=== PATIENT | male | born 1975 | race Caucasian/White ===

== ENCOUNTER → 2019-10-27 16:02 | Outpatient (BNVA) | payer SELFPAY | PROVIDERS: Visit Provider Nurse Practitioner Family | DX: M24.469 Recurrent dislocation, unspecified knee (principal); M25.562 Pain in left knee; R23.8 Other skin changes; R22.42 Localized swelling, mass and lump, left lower limb | CPT/HCPCS: 73562; 85025 ==

== ENCOUNTER 2019-11-12 15:19 | Outpatient (CLI) | payer SELFPAY ==
--- NOTE | 2019-11-12 15:00 | US_ITS ---
WS: [id number] US soft tissue/extremity 60671 REASON FOR EXAM: mass of left upper leg FINDINGS: A prominent mass is seen involving the soft tissue in the upper left side. There is flow co ncerning the mass but the flow is not excessive. Size of the mass measures 8.19 x 12.5 x 6 cm. The ma ss has the texture of muscle. There is no evidence of thrombophlebitis or obstruction of the arterial system. US/US soft tissue/extremity 53999 IMPRESSION: Prominent left thigh soft tissue mass appears to be density suggesting muscle w ith possible hemorrhage.
== END 2019-11-12 15:20 | disposition home or self-care (01) ==
LOC: RAD 15:22
PROVIDERS: PCP Nurse Practitioner Family; Visit Provider Nurse Practitioner Family
DX: R22.42 Localized swelling, mass and lump, left lower limb (principal)
CPT/HCPCS: 76882

== ENCOUNTER → 2020-04-14 11:34 | Outpatient (BNVA) | payer SELFPAY | PROVIDERS: PCP Nurse Practitioner Family; Visit Provider Nurse Practitioner Family | DX: L03.115 Cellulitis of right lower limb (principal); R22.42 Localized swelling, mass and lump, left lower limb; T63.301A Toxic effect of unspecified spider venom, accidental (unintentional), initial encounter; Z86.14 Personal history of Methicillin resistant Staphylococcus aureus infection | CPT/HCPCS: 73552 ==

== ENCOUNTER 2020-04-15 14:33 | Emergency (ER) | payer SELFPAY ==
[2020-04-15 14:35] VITALS: BP 142/81; PULSE 95; RESP 18; TEMP 36.4; O2SAT 100; BMI 27.8
--- NOTE | 2020-04-15 14:43 | W.ED.GENADLT ---
Documented by User: KAM Archer 04/18/20 13:40 HPI - General Adult General: Chief complaint: General Medical Stated complaint: Right Leg/Vein Complications/Sent from [place] Time Seen by Provider: 04/15/20 14:43 History of Present Illness: HPI narrative: Patient is a 44-year-old male comes to the ED with cellulitis on right thigh. Patient was seen at [facility] for same complaint yesterday apr 14 and put on antibiotic and a steroid. Patient just started taking antibiotic and steroid for 24 hours. He went back into [facility] and they looked at cellulitis and sent him here to the ED to be evaluated. Patient says about 2 days ago he felt something poke his right thigh early in the morning. Ever since then he has had itching down in that area and has become tender, swollen and red. Associated symptoms: Deny chest pain, dyspnea, headache(s), nausea, rash, palpitations or vomiting Review of Systems Const: Denies: fever(s), chills or fatigue Eyes: Denies: change in vision or eye discomfort ENMT: Denies: throat pain, odynophagia, nasal discharge or nasal congestion Card: Denies: chest pain, palpitations, edema, swelling of feet/ankles, dyspnea on exertion or orthopnea Resp: Denies: dyspnea, productive cough or non-productive cough GI: Denies: abdominal pain, nausea, vomiting, diarrhea, constipation or hematochezia : Denies: flank pain, difficulty urinating, dysuria or hematuria Musc: Denies: neck pain, back pain or extremity swelling Skin/Breast: Reports: new lesions (Cellulitis on right thigh. 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 travel: No Physical Exam Const: COMMON NORMALS: no acute distress, patient oriented x3 and alert GENERAL APPEARANCE: cooperative and comfortable HENMT: COMMON NORMALS: normocephalic HEAD & SCALP: normocephalic MOUTH: Normal oral and palatal mucosa present THROAT: posterior oropharynx normal and uvula midline Eye: COMMON NORMALS: Equal, round and reactive pupils present PUPIL: Yes Equal, round and reactive pupils present Neck/C-Spine: COMMON NORMALS: supple GENERAL: Yes normal visual inspection Resp: COMMON NORMALS: normal respiratory effort, No retractions, No use of accessory muscles and clear to auscultation bilaterally AUSCULTATION: clear to auscultation bilaterally Cardio: COMMON NORMALS: regular rate, regular rhythm, S1 normal heart sound present, S2 normal heart sound present, No gallops present (Cardio), No clicks present (Cardio), No murmurs present (Cardio) and Peripheral pulses 2+ throughout RATE: regular rate RHYTHM: regular rhythm HEART SOUNDS: S1 normal heart sound present and S2 normal heart sound present PERIPHERAL PULSES: Peripheral pulses 2+ throughout GI: COMMON NORMALS: Normal to inspection, nondistended, normoactive bowel sounds present, Soft to palpation, non-tender and no masses PALPATION: Yes Soft to palpation : COMMON NORMALS: Yes no CVA tenderness BLADDER/KIDNEY EXAM: Yes no CVA tenderness Back/Pelvis: COMMON NORMALS: no CVA tenderness Extremity: COMMON NORMALS: no pedal edema NARRATIVE EXTREMITY EXAM: Right leg?medial aspect of thigh. Circular o ecchymosis approximately 1 cm. Surrounding erythema and warmth. No open wound or ulcer. No visible drainage. Skin is firm and tender upon palpation. Nonfluctuant and indurated. Exam findings suggestive of cellulitis. GENERAL: Yes normal exam except as noted Neuro: COMMON NORMALS: patient oriented x3 and moves all extremities SENSORIUM/ORIENTATION: Yes alert Skin: NARRATIVE SKIN EXAM: Right leg?medial aspect of thigh. Circular o ecchymosis approximately 1 cm. Surrounding erythema and warmth. No open wound or ulcer. No visible drainage. Skin is firm and tender upon palpation. Nonfluctuant and indurated. Exam findings suggestive of cellulitis. GENERAL SKIN EXAM: dry skin Course Vital Signs: Vital signs: Vital Signs Temperature 97.5 F L 11/19/20 14:35 Pulse Rate 86 04/15/20 17:55 Respiratory Rate 14 04/15/20 17:55 Blood Pressure 142/85 04/15/20 17:55 Pulse Oximetry 100 04/15/20 17:55 MDM - General Adult MDM Narrative: Medical decision making narrative: Patient is a 44-year-old male comes to the ED with right thigh lesion. Physical exam shows tender erythematous and warm nodule of the medial aspect of the right thigh. Ultrasound venous duplex shows mobile GSV thrombosis near femoral vein. White blood cell count 19.1. I talked with Dr. Hilario about patient case and she would need an examined patient. Patient was given a dose of Lovenox while here in the ED. Dr. Hilario tried to convince patient to be brought into the hospital but he refused. Patient was discharged on Eliquis to treat DVT/PE. He was told to continue taking his clindamycin and prednisone. Return to ED precautions given. Patient understood agree with plan. Lab Data: Labs: Lab Results 04/15/20 04/15/20 Range/Units 15:20 15:20 WBC 19.1 H (4.0-10.0) 10^3/ uL RBC 4.59 (4.1-5.3) 10^6/u L Hgb 13.7 (11.7-16.6) g/dL Hct 41.5 L (42.0-52.0) % MCV 90.4 (80-94) fL MCH 29.8 (28.0-34.0) pg MCHC 33.0 (30.0-36.0) g/dL RDW 12.8 (12.1-15.1) % Plt Count 278 (130-400) 10^3/c mm MPV 10.1 (7.4-10.4) fL Neut % (Auto) 85.9 % Lymph % (Auto) 6.3 % [place] % (Auto) 7.1 % Eos % (Auto) 0.0 % Baso % (Auto) 0.1 % Neut # (Auto) 16.38 H (1.8-7.7) 10^3/u L Lymph # (Auto) 1.2 (0.8-4.8) 10^3/u L [place] # (Auto) 1.4 H (0.2-0.9) 10^3/u L Eos # (Auto) 0.0 (0.0-0.8) 10^3/u L Baso # (Auto) 0.0 (0.0-0.1) 10^3/u L Nucleated RBC % (a uto) 0 % Nucleated RBCs # 0.0 /100WBC Sodium 139 (136-145) mmol/L Potassium 4.3 (3.5-5.1) mmol/L Chloride 101 (98-107) mmol/L Carbon Dioxide 25 (22-29) mmol/L Anion Gap 17.3 (5-19) BUN 17 (6-20) mg/dL Creatinine 0.9 (0.7-1.2) mg/dL GFR Calculation 92.5 (90-130) mL/min Glucose 187 H (65-115) mg/dL Calculated Osmolal ity 294 (285-295) mOsm/k g Calcium 10.0 (8.5-10.5) mg/dL Total Bilirubin 0.3 (0.15-1.2) mg/dL AST 17 (0-40) U/L ALT 10 (0-41) U/L Alkaline Phosphata se 86 (40-130) IU/L Total Protein 7.7 (6.6-8.7) g/dL Albumin 4.7 (3.5-5.2) g/dL Globulin 3.0 (1.3-4.6) g/dL Imaging Data^: US Vascular: Attestation: I personally reviewed and interpreted this imaging study as follows: Radiologist's impression: billing and quality technician prelim report?Thrombosis near femoral Vein. [address] [address] Ultrasound Report Signed Patient: Sandro Metz MUnit #: [id number] : 1975Acct#:[id number] Age/Sex: 44 / MADM Date: 04/15/20 Loc: ERRoom/Bed: Attending Dr: Ordering Provider/Ordering MD: Rafat Crespo Date of Service: 04/15/20 Procedure(s): [place] [address] Accession Number(s): [id number] Report Number: [id number] Sandro Metz Age: 44 Gender: M : 1975 Exam Date: 04/15/2020 15:19 Ordering Phys: Rafat Crespo Technologist: Vickie Paz [place] [facility] [place]: RED HARD INNER RT THIGH HISTORY: Pain and hardness rt inner thigh PROCEDURES: Venous duplex imaging was performed in only the right lower extremity. The following venous structures were evaluated: common femoral vein, profunda vein, proximal portion of the greater saphenous vein, superficial femoral vein, and the popliteal vein. In addition, the posterior tibial and peroneal trunk were evaluated. Serial compression, augmentation maneuvers, and spectral Doppler flow evaluation were performed. FINDINGS: No DVT seem in any vessel examined. RT GSV is noncompressible from just at knee to prox GSV. Extensive and mobile thrombus in the GSV with thicken maher. There may have been some hemorrhage into the wall of the GSV as there is mixed echogenicity and thickening. CONCLUSIONS No DVT right lower extremity. Extensive mobile thrombus GSV. Dr. Chula Cardoza DO (Electronically Signed) Final Date: 15 April 2020 15:45 Discharge Plan Discharge Patient Disposition: Home Clinical Impression: Cellulitis of right thigh, Thrombosis of right saphenous vein, Mass of left thigh Condition: Stable Prescriptions: New Eliquis DVT-PE Treat 30D Start 5 mg (74 tabs) tablets,dose pack See Rx Instructions .ROUTE .COMPLEX Qty: 74 RF: 0 No Action clindamycin HCl 300 mg capsule 300 mg PO TID 10 Days Qty: 30 RF: 0 prednisone 20 mg tablet See Rx Instructions PO BID 6 Days Qty: 14 RF: 0 Discharge Orders: Discharge Order (Routine); Ordered 04/15/20 Ordered By: Veronika Hilario Referrals: Mayela Barba FNP-C [Primary Care Provider] - Discharge Diet: Advance as tolerated Discharge Activity: Resume usual activity Patient Instructions: Cellulitis (ED), Deep Venous Thrombosis (ED) Activity Restrictions/Additional Instructions: Take the antibiotics exactly as prescribed. Start the Eliquis pack in the morning. This is a blood thinner to prevent worsening of the clot in your right leg. Watch the mass in your left leg closely to make sure it is not getting larger or more painful as the blood thinner could cause this to happen. Follow-up closely with the [facility] and make sure to keep the follow-up appointment with surgery for the left thigh mass. Return to the emergency department if worse in any way including fever, chest pain, shortness of breath. Coding Level of Care Code ED Hand Glass Cutter for Chg Fwd Exam Comprehensive Documented by User: PAOLA Iniguez 04/15/20 18:29 HPI - General Adult General: Chief complaint: General Medical Stated complaint: Right Leg/Vein Complications/Sent from [place] Time Seen by Provider: 04/15/20 14:43 [facility] ED PFSH: Medical History History of MRSA infection Mass of leg Surgical History History of back surgery Family History Other Unknown family medical history Social History Smoking and tobacco status: current every day smoker Lives independently: Yes Household members: none Marital status: Single Current occupational status: employed 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 travel: No Course Vital Signs: Vital signs: Vital Signs Temperature 97.5 F L 04/15/20 14:35 Pulse Rate 86 04/15/20 17:55 Respiratory Rate 14 04/15/20 17:55 Blood Pressure 142/85 04/15/20 17:55 Pulse Oximetry 100 04/15/20 17:55 MDM - General Adult Lab Data: Labs: Lab Results 04/15/20 04/15/20 Range/Units 15:20 15:20 WBC 19.1 H (4.0-10.0) 10^3/ uL RBC 4.59 (4.1-5.3) 10^6/u L Hgb 13.7 (11.7-16.6) g/dL Hct 41.5 L (42.0-52.0) % MCV 90.4 (80-94) fL MCH 29.8 (28.0-34.0) pg MCHC 33.0 (30.0-36.0) g/dL RDW 12.8 (12.1-15.1) % Plt Count 278 (130-400) 10^3/c mm MPV 10.1 (7.4-10.4) fL Neut % (Auto) 85.9 % Lymph % (Auto) 6.3 % [place] % (Auto) 7.1 % Eos % (Auto) 0.0 % Baso % (Auto) 0.1 % Neut # (Auto) 16.38 H (1.8-7.7) 10^3/u L Lymph # (Auto) 1.2 (0.8-4.8) 10^3/u L [place] # (Auto) 1.4 H (0.2-0.9) 10^3/u L Eos # (Auto) 0.0 (0.0-0.8) 10^3/u L Baso # (Auto) 0.0 (0.0-0.1) 10^3/u L Nucleated RBC % (a uto) 0 % Nucleated RBCs # 0.0 /100WBC Sodium 139 (136-145) mmol/L Potassium 4.3 (3.5-5.1) mmol/L Chloride 101 (98-107) mmol/L Carbon Dioxide 25 (22-29) mmol/L Anion Gap 17.3 (5-19) BUN 17 (6-20) mg/dL Creatinine 0.9 (0.7-1.2) mg/dL GFR Calculation 92.5 (90-130) mL/min Glucose 187 H (65-115) mg/dL Calculated Osmolal ity 294 (285-295) mOsm/k g Calcium 10.0 (8.5-10.5) mg/dL Total Bilirubin 0.3 (0.15-1.2) mg/dL AST 17 (0-40) U/L ALT 10 (0-41) U/L Alkaline Phosphata se 86 (40-130) IU/L Total Protein 7.7 (6.6-8.7) g/dL Albumin 4.7 (3.5-5.2) g/dL Globulin 3.0 (1.3-4.6) g/dL Discharge Plan Discharge Patient Disposition: Home Clinical Impression: Cellulitis of right thigh, Thrombosis of right saphenous vein, Mass of left thigh Condition: Stable Prescriptions: New Eliquis DVT-PE Treat 30D Start 5 mg (74 tabs) tablets,dose pack See Rx Instructions .ROUTE .COMPLEX Qty: 74 RF: 0 No Action clindamycin HCl 300 mg capsule 300 mg PO TID 10 Days Qty: 30 RF: 0 prednisone 20 mg tablet See Rx Instructions PO BID 6 Days Qty: 14 RF: 0 Discharge Orders: Discharge Order (Routine); Ordered 04/15/20 Ordered By: Veronika Hilario Referrals: Mayela Barba FNP-C [Primary Care Provider] - Discharge Diet: Advance as tolerated Discharge Activity: Resume usual activity Patient Instructions: Cellulitis (ED), Deep Venous Thrombosis (ED) Activity Restrictions/Additional Instructions: Take the antibiotics exactly as prescribed. Start the Eliquis pack in the morning. This is a blood thinner to prevent worsening of the clot in your right leg. Watch the mass in your left leg closely to make sure it is not getting larger or more painful as the blood thinner could cause this to happen. Follow-up closely with the [facility] and make sure to keep the follow-up appointment with surgery for the left thigh mass. Return to the emergency department if worse in any way including fever, chest pain, shortness of breath. Coding Level of Care Code ED Hand Glass Cutter for Dora Pichardo Exam Comprehensive
--- NOTE | 2020-04-15 14:54 | USCV_ITS ---
CalinSandro patel Age: 44 Gender: M : 1975 Exam Date: 04/15/2020 15:19 Ordering Phys: Rafat Crespo Technologist: Vickie Paz [place]am Location[place] [facility] [place]ication: RED HARD INNER RT THIGH HISTORY: Pain and hardness rt inner thigh PROCEDURES: Venous duplex imaging was performed in only the right lower extremity. The following venous structures were evaluated: common femoral vein, profunda vein, proximal portion of the greater saphenous vein, superficial femoral vein, and the popliteal vein. In addition, the posterior tibial and peroneal trunk were evaluated. Serial compression, augmentation maneuvers, and spectral Doppler flow evaluation were performed. FINDINGS: No DVT seem in any vessel examined. RT GSV is noncompressible from just at knee to prox GSV. Extensive and mobile thrombus in the GSV with thicken maher. There may have been some hemorrhage into the wall of the GSV as there is mixed echogenicity and thickening. CONCLUSIONS No DVT right lower extremity. Extensive mobile thrombus GSV. Dr. Chula Cardoza DO (Electronically Signed) Final Date: 15 April 2020 15:45 S
[2020-04-15] MEDS: sodium chloride 0.9% 1,000 ML 999 ML IV (15:27)
[2020-04-15 15:31] LABS: Basophils % 0.1 %; Hematocrit 41.5 % (42.0-52.0); Hemoglobin 13.7 g/dL (11.7-16.6); Lymphocytes # 1.2 10^3/uL (0.8-4.8); Lymphocytes % 6.3 %; Mean Corpuscular Hemoglobin 29.8 pg (28.0-34.0); Mean Corpuscular Volume 90.4 fL (80-94); Mean Platelet Volume 10.1 fL (7.4-10.4); Monocytes # 1.4 10^3/uL (0.2-0.9); Monocytes % 7.1 %; Neutrophils # 16.38 10^3/uL (1.8-7.7); Neutrophils % 85.9 %; Nucleated Red Blood Cells % 0 %; Platelet Count 278 10^3/cmm (130-400); Red Blood Count 4.59 10^6/uL (4.1-5.3); Red Cell Distribution Width 12.8 % (12.1-15.1); White Blood Count 19.1 10^3/uL (4.0-10.0)
[2020-04-15 15:34] VITALS: BP 136/87; PULSE 77; RESP 14; O2SAT 99
[2020-04-15 16:03] LABS: Alanine Aminotransferase 10 U/L (0-41); Albumin Level 4.7 g/dL (3.5-5.2); Alkaline Phosphatase 86 IU/L (40-130); Blood Urea Nitrogen 17 mg/dL (6-20); Carbon Dioxide 25 mmol/L (22-29); Chloride 101 mmol/L (98-107); Glomerular Filtration Rate 92.5 mL/min (90-130); Glucose 187 mg/dL (65-115); Osmolality Calculated 294 mOsm/kg (285-295); Sodium 139 mmol/L (136-145); Total Bilirubin 0.3 mg/dL (0.15-1.2); Total Protein 7.7 g/dL (6.6-8.7)
[2020-04-15 16:09] LABS: Anion Gap 17.3 (5-19); Aspartate Amino Transferase 17 U/L (0-40); Potassium 4.3 mmol/L (3.5-5.1)
[2020-04-15] MEDS: cefTRIAXone 2,000 MG in sodium chloride 0.9% (plus) 50 ML 100 MG IV (16:24)
[2020-04-15] MEDS: enoxaparin 40 mg/0.4 mL Syringe 35 MG SUBCUT (16:26)
[2020-04-15] MEDS: enoxaparin 100 mg/mL Syringe SUBCUT (16:26)
[2020-04-15 16:27] VITALS: BP 109/84; PULSE 78; RESP 14; O2SAT 99
[2020-04-15 17:55] VITALS: BP 142/85; PULSE 86; RESP 14; O2SAT 100
== END 2020-04-15 17:56 | disposition home or self-care (01) ==
PROVIDERS: Physician Assistant; Emergency Provider Emergency Medicine; PCP Nurse Practitioner Family
DX: L03.115 Cellulitis of right lower limb (principal); I82.811 Embolism and thrombosis of superficial veins of right lower extremity; R22.42 Localized swelling, mass and lump, left lower limb; F17.210 Nicotine dependence, cigarettes, uncomplicated; Z86.14 Personal history of Methicillin resistant Staphylococcus aureus infection
CPT/HCPCS: 12345; 80053; 85025; 87040; 93971; 96365; 96372; 99282; 99283; J0696; J1650; J7030

== ENCOUNTER 2020-04-21 12:15 | Outpatient (CLI) | payer SELFPAY ==
--- NOTE | 2020-04-21 12:21 | MR_ITS ---
WS: [id number] INDICATION: Left lower leg TECHNIQUE: MRI of the left femur without gadolinium enhancement. Coronal T1, coronal STIR, sagittal S TIR, sagittal T1, axial PD, axial T2 fat sat FINDINGS: In the area of concern, along the left inner upper thigh is a T2 hyperintense lobulated sep tated soft tissue mass measuring 13.9 x 9.7 x 8.3 cm. This extends into the upper thigh. This is inte rposed between the anterior medial thigh musculature and is anterior to the femoral shaft. No abnorma l bone marrow signal in the underlying femur. Small T2 hyperintense tail appears to extend to the nataliia rovascular bundle in the upper thigh. Soft tissue mass abuts the sartorius and adductor longus. Inter position between the vastus intermedialis and adductor Cyrus. Anterior margin of the mass extends into the subcutaneous soft tissues. This lesion appears relativel y well encapsulated. No visualized inguinal lymphadenopathy. Recommend further evaluation with gadoli nium. MR/MR femur LT wo con* [id number] IMPRESSION: 1. Lobulated T2 hyperintense soft tissue mass in the area of concern measuring 9.7 x 13.9 x 8.3 cm as described above. 2. T2 hyperintense tail at the superior margin extending to the femoral neurov ascular bundle. Differential considerations include nerve sheath tumor such as schwannoma or neurofibroma.. Additional less likely considerations include soft tissue sarcoma. Recommend further evaluation with gadolinium. 3. No inguinal lymphadenopathy visualized. 4. No edema in the underlying femoral shaft. 5. No other significant findings.
== END 2020-04-21 12:16 | disposition home or self-care (01) ==
LOC: RADWPI 12:19
PROVIDERS: PCP Nurse Practitioner Family; Visit Provider Nurse Practitioner Family
DX: R22.42 Localized swelling, mass and lump, left lower limb (principal)
CPT/HCPCS: 73718; 73720

== ENCOUNTER 2020-05-05 09:04 | Outpatient (CLI) | payer SELFPAY ==
--- NOTE | 2020-05-05 09:09 | MR_ITS ---
WS: [id number] INDICATION: Localized swelling mass and lump left lower limb TECHNIQUE: Post gadolinium imaging was obtained today. Sagittal axial and coronal post gadolinium franki ging with fat saturation technique. FINDINGS: Correlation is made to noncontrast MRI April 21, 2020 Again seen is the lobulated T2 hyperintense soft tissue mass in the left inner upper thigh measuring 13.9 x 9 0.70, 0.3 CM. Again this lesion appears relatively well encapsulated and demonstrates diffus e heterogeneous enhancement. Mild tenting at the apex of the lesion. This is separate from the femora l shaft. No edema or abnormal bone marrow enhancement. Enhancement is confined to the margins of the lesion. Differential considerations include nerve sheath tumor such as schwannoma or neurofibroma as well as soft tissue sarcoma. Recommend surgical/orthopedic consultation for open biopsy/resection. This would also be amenable to ultrasound guided biopsy if desired. MR/MR femur LT wo/w con [id number] IMPRESSION: 1. Again seen is the T2 hyperintense lobulated upper thigh lesion with intense diffuse heterogeneous enhancement. Enhancement is confined to the margins of t he lesion. 2. No significant enhancement in the surrounding musculature. No abnormal bone marrow edema or enhancement. 3. Differential considerations include nerve sheath tumor such as schwannoma o r neurofibroma as well as soft tissue/intramuscular sarcoma. 4. Recommend surgical/orthopedic consultation for resection. This would be am enable to ultrasound guided biopsy if desired.
== END 2020-05-05 09:05 | disposition home or self-care (01) ==
LOC: RADSHAW 09:06
PROVIDERS: PCP Nurse Practitioner Family; Visit Provider Nurse Practitioner Family
DX: R22.42 Localized swelling, mass and lump, left lower limb (principal)
CPT/HCPCS: 73720; A9579

== ENCOUNTER 2020-09-05 14:11 | Emergency (ER) | payer SELFPAY ==
[2020-09-05 14:31] VITALS: BP 131/74; PULSE 73; RESP 18; TEMP 36.7; O2SAT 99; BMI 26.4
[2020-09-05 18:17] LABS: Basophils # 0.1 10^3/uL (0.0-0.1); Basophils % 0.8 %; Eosinophils # 0.2 10^3/uL (0.0-0.8); Eosinophils % 2.1 %; Hematocrit 44.4 % (42.0-52.0); Hemoglobin 14.4 g/dL (11.7-16.6); Lymphocytes # 2.7 10^3/uL (0.8-4.8); Lymphocytes % 28.4 %; Mean Corpuscular HGB Conc 32.4 g/dL (30.0-36.0); Mean Corpuscular Hemoglobin 29.4 pg (28.0-34.0); Mean Corpuscular Volume 90.8 fL (80-94); Mean Platelet Volume 9.7 fL (7.4-10.4); Monocytes % 10.8 %; Neutrophils # 5.51 10^3/uL (1.8-7.7); Neutrophils % 57.6 %; Nucleated Red Blood Cells % 0 %; Platelet Count 242 10^3/cmm (130-400); Red Blood Count 4.89 10^6/uL (4.1-5.3); White Blood Count 9.6 10^3/uL (4.0-10.0)
[2020-09-05 18:33] LABS: Lactate (Lactic Acid level) 1.9 mmol/L (0.5-2.2)
[2020-09-05 18:41] LABS: Alanine Aminotransferase 10 U/L (0-41); Albumin Level 4.4 g/dL (3.5-5.2); Alkaline Phosphatase 78 IU/L (40-130); Blood Urea Nitrogen 10 mg/dL (6-20); Calcium 9.2 mg/dL (8.5-10.5); Carbon Dioxide 27 mmol/L (22-29); Chloride 101 mmol/L (98-107); Globulin 2.4 g/dL (1.3-4.6); Glomerular Filtration Rate 73.1 mL/min (90-130); Glucose 93 mg/dL (65-115); Osmolality Calculated 289 mOsm/kg (285-295); Sodium 140 mmol/L (136-145); Total Bilirubin 0.3 mg/dL (0.15-1.2); Total Protein 6.8 g/dL (6.6-8.7)
[2020-09-05 18:43] LABS: Anion Gap 16.7 (5-19); Aspartate Amino Transferase 20 U/L (0-40); Potassium 4.7 mmol/L (3.5-5.1)
--- NOTE | 2020-09-05 18:43 | CTR_ITS ---
PROCEDURE INFORMATION: Exam: CT Left Lower Extremity With Contrast; Thigh Exam date and time: 09/05/2020 6:50 PM Age: 45 years old Clinical indication: Condition or disease; Prior surgery; Surgery date: 6+ months; Surgery type: L knee; Patient HX: L thigh mass > 1year now C/O increased swelling pain and redness TECHNIQUE: Imaging protocol: CT of the Left lower extremity with intravenous contrast was performed. Exam focused on the thigh. Radiation optimization: All CT scans at this facility use at least one of these dose optimization techniques: automated exposure control; mA and/or kV adjustment per patient size (includes targeted exams where dose is matched to clinical indication); or iterative reconstruction. Contrast material: OMNI 300; Contrast volume: 95 ml; Contrast route: INTRAVENOUS (IV); COMPARISON: MR femur LT wo/w con [id number] 05/05/2020 9:22 AM RADIATION DOSE METRICS: Total DLP (mGy-cm): 1221.81 FINDINGS: Bones/joints: No fractures. No lytic bone lesion. No periosteal bone reaction. Normal bone mineralization. Soft tissues: Large heterogeneous solid soft tissue mass centered in the left quadriceps musculature is redemonstrated. Overlying mild subcutaneous soft tissue edema. No active bleeding in the mass identified. Vasculature: Left femoral vascular structures patent. Lymph nodes: No left inguinal lymphadenopathy. No lymphadenopathy in the popliteal fossa. No left pelvis lymphadenopathy. Intraperitoneal space: The margins of the mass are difficult to define, but at the largest aspect the mass is about 12 cm AP x 13.6 cm transverse; prior 9.1 cm x 9.0 cm. The length of the mass is about 18.7 cm; prior 15 cm. Other findings: Portions of the mass are hypervascular. CT/CT femur LT w con [id number] IMPRESSION: Significant growth of the large soft tissue mass centered in the left thigh quadriceps musculature. 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 Radiation Dose CTDIVOL = (mGy): DLP = 1221.81 (mGy-cm)
--- NOTE | 2020-09-05 18:56 | W.ED.EXTPRO ---
HPI - Extremity Problem General: Chief complaint: Extremity Problem,Nontraumatic Stated complaint: swollen L leg, suspects staph infection Time Seen by Provider: 09/05/20 17:02 History of Present Illness: HPI Narrative: The patient is a 45-year-old male with known left thigh mass of significant size. He saw a general surgeon here in [place] in February and was referred to [place]. He says he has an appointment there tomorrow. He says 2 days ago the mass became red, felt warm, and became tender and it has worsened today he came to the ER for evaluation. It is indeed warm and mildly tender. Complaint: extremity pain Onset (ago): day(s) (2) Location: left Associated symptoms: Reports no associated symptoms; Deny chest pain, fever(s) or rash Review of Systems General: Reports: 10 or more systems reviewed and unremarkable except in HPI and below Const: Denies: fever(s) Eyes: Denies: change in vision, blurry vision or eye redness ENMT: Denies: throat pain, swelling of lips/tongue, ear or mastoid pain or nasal congestion Card: Denies: chest pain, palpitations, irregular heart rhythm, edema, dyspnea on exertion or orthopnea Resp: Denies: dyspnea, productive cough or non-productive cough GI: Denies: abdominal pain, diarrhea or GI cramping : Denies: flank pain, urinary frequency or urinary urgency Musc: Denies: neck pain, back pain, extremity pain, joint pain, joint redness, limited range of motion or muscle weakness Skin/Breast: Reports: erythema, skin tenderness and other (Left thigh mass chronic); Denies: rash, pruritus or skin pain Neuro: Denies: headache(s), numbness in extremities, weakness in extremities, sensory changes, difficulty walking, dizziness, confusion or Slurred speech present Psych: Denies: anxiety or depression Endo: Denies: polyuria All/Imm: Denies: urticaria, throat swelling or tongue swelling PFSH ED PFSH: Medical History DVT (deep venous thrombosis) History of MRSA infection Surgical History H/O circumcision History of back surgery Family History Other Diabetes Unknown family medical history Denies family history of CAD (coronary artery disease) Anesthesia complication Bleeding disorder Cancer Social History Smoking and tobacco status: current every day smoker Alcohol intake: never Lives independently: Yes Household members: none Marital status: Single Current occupational status: employed 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 History of recent travel: No Physical Exam Const: COMMON NORMALS: no acute distress, average body habitus, patient oriented x3, no limitations, healthy appearing, alert and well nourished GENERAL APPEARANCE: cooperative, comfortable, well kempt and well developed ORIENTATION/CONSCIOUSNESS: Yes awake, Yes oriented to person, Yes oriented to place and Yes oriented to time HENMT: COMMON NORMALS: normocephalic, external ears normal and Normal external nose present HEAD & SCALP: normal to inspection and normocephalic NOSE: Normal external nose present EXTERNAL EAR: Yes external ears normal MOUTH: Normal oral and palatal mucosa present THROAT: posterior oropharynx normal Eye: COMMON NORMALS: Equal, round and reactive pupils present and EOMs intact bilaterally GENERAL EYE: appearance normal, both eyes and all related structures PUPIL: Yes Equal, round and reactive pupils present Neck/C-Spine: COMMON NORMALS: full ROM, no lymphadenopathy, no meningeal signs and no JVD GENERAL: Yes normal visual inspection Lymph: LYMPHATIC: no lymphadenopathy noted Chest: COMMONS NORMALS: normal inspection of the chest and normal palpation of entire chest wall Resp: COMMON NORMALS: normal respiratory effort, No retractions, No use of accessory muscles, clear to auscultation bilaterally and percussion normal EFFORT & INSPECTION: Yes able to speak in complete sentences AUSCULTATION: clear to auscultation bilaterally PERCUSSION: percussion normal Cardio: COMMON NORMALS: no JVD, regular rate, regular rhythm, S1 normal heart sound present, S2 normal heart sound present and Peripheral pulses 2+ throughout RATE: regular rate RHYTHM: regular rhythm HEART SOUNDS: S1 normal heart sound present and S2 normal heart sound present PERIPHERAL PULSES: Peripheral pulses 2+ throughout GI: COMMON NORMALS: Normal to inspection, nondistended, normoactive bowel sounds present, Soft to palpation, non-tender and no masses INSPECTION: Yes normal to inspection PALPATION: Yes Soft to palpation : COMMON NORMALS: Yes no CVA tenderness BLADDER/KIDNEY EXAM: Yes no CVA tenderness Back/Pelvis: COMMON NORMALS: no CVA tenderness, thoracic and lumbar spine normal to inspection, no thoracic nor lumbar tenderness and thoraco-lumbar ROM normal Extremity: COMMON NORMALS: normal to inspection, full ROM, capillary refill normal, no joint enlargement and no pedal edema GENERAL: Yes normal exam except as noted Neuro: COMMON NORMALS: patient oriented x3, CN's II-XII intact bilaterally, moves all extremities, no focal motor deficits, no sensory deficits noted and gait normal SENSORIUM/ORIENTATION: Yes alert, Yes oriented to person, Yes oriented to place and Yes oriented to time MENINGEAL SIGNS: Yes no meningeal signs Psych: COMMON NORMALS: mental status grossly normal, Normal thought process present, cooperative, normal affect and speech normal APPEARANCE: Yes well kempt ATTITUDE: Yes calm SPEECH: Yes normal speech THOUGHT PROCESS: Normal thought process present Skin: COMMON NORMALS: no rashes or lesions noted NARRATIVE SKIN EXAM: The patient has a mass to his left thigh which is sizable. Likely 10 to 15 cm in diameter but unknown as it is a deep soft tissue mass. The mass does bulge outward and has erythema on the skin surface and adjacent areas around the mass. This area is also tender. It does appear like a local cellulitis. There is a firm palpable mass beneath the skin. Difficult to tell if there is any fluctuance due to the underlying mass. GENERAL SKIN EXAM: no rashes or lesions noted Course Vital Signs: Vital signs: Vital Signs Temperature 98.1 F 09/05/20 14:31 Pulse Rate 72 09/05/20 20:48 Respiratory Rate 18 09/05/20 14:31 Blood Pressure 124/80 09/05/20 20:48 Pulse Oximetry 100 09/05/20 20:48 MDM - Extremity (Nontraumatic) MDM Narrative: Medical decision making narrative: Signed out to Dr. Torres at [address] pending. Lab Data: Labs: Lab Results 09/05/20 09/05/20 09/05/20 Range/Units 18:00 18:00 18:00 WBC 9.6 (4.0-10.0) 10^3/ uL RBC 4.89 (4.1-5.3) 10^6/u L Hgb 14.4 (11.7-16.6) g/dL Hct 44.4 (42.0-52.0) % MCV 90.8 (80-94) fL MCH 29.4 (28.0-34.0) pg MCHC 32.4 (30.0-36.0) g/dL RDW 13.0 (12.1-15.1) % Plt Count 242 (130-400) 10^3/c mm MPV 9.7 (7.4-10.4) fL Neut % (Auto) 57.6 % Lymph % (Auto) 28.4 % [place] % (Auto) 10.8 % Eos % (Auto) 2.1 % Baso % (Auto) 0.8 % Neut # (Auto) 5.51 (1.8-7.7) 10^3/u L Lymph # (Auto) 2.7 (0.8-4.8) 10^3/u L [place] # (Auto) 1.0 H (0.2-0.9) 10^3/u L Eos # (Auto) 0.2 (0.0-0.8) 10^3/u L Baso # (Auto) 0.1 (0.0-0.1) 10^3/u L Nucleated RBC % (a uto) 0 % Nucleated RBCs # 0.0 /100WBC Sodium 140 (136-145) mmol/L Potassium 4.7 (3.5-5.1) mmol/L Chloride 101 (98-107) mmol/L Carbon Dioxide 27 (22-29) mmol/L Anion Gap 16.7 (5-19) BUN 10 (6-20) mg/dL Creatinine 1.1 (0.7-1.2) mg/dL GFR Calculation 73.1 L (90-130) mL/min Glucose 93 (65-115) mg/dL Calculated Osmolal ity 289 (285-295) mOsm/k g Lactate 1.9 (0.5-2.2) mmol/L Calcium 9.2 (8.5-10.5) mg/dL Total Bilirubin 0.3 (0.15-1.2) mg/dL AST 20 (0-40) U/L ALT 10 (0-41) U/L Alkaline Phosphata se 78 (40-130) IU/L Total Protein 6.8 (6.6-8.7) g/dL Albumin 4.4 (3.5-5.2) g/dL Globulin 2.4 (1.3-4.6) g/dL Discharge Plan Discharge Patient Disposition: Home Clinical Impression: Mass of left thigh Condition: Stable Prescriptions: New doxycycline hyclate 100 mg capsule 100 mg PO BID 10 Days Qty: 20 RF: 0 Discharge Orders: Discharge ED (Routine); Ordered 09/05/20 Ordered By: Pk Torres Referrals: Mayela Barba FNP-C [Primary Care Provider] - 1-3 days Discharge Diet: Usual diet Discharge Activity: Increase activity as tolerated Patient Instructions: Lump/Mass Activity Restrictions/Additional Instructions: Medications as directed. Case management will be in contact with you to reschedule your oncology appointment in [place], and try to help with your transportation problems. Return for fever greater than 100, vomiting liquids or medications, other concerning symptoms Coding Level of Care Code ED Locomotive Mechanic Apprentice for Dora Fwd Exam Comprehensive
--- NOTE | 2020-09-05 19:03 | PC.NURSE ---
US guided IV placed with 2 attempts. Pt tolerated well.
[2020-09-05] MEDS: iohexol 300 mg/mL 100 mL Btl IV (19:10)
[2020-09-05] MEDS: vancomycin 1,000 MG in sodium chloride 0.9% 250 ML 250 MG IV (19:28)
[2020-09-05] MEDS: sodium chloride 0.9% 1,000 ML 999 ML IV (19:30)
[2020-09-05 20:48] VITALS: BP 124/80; PULSE 72; O2SAT 100
--- NOTE | 2020-09-06 13:01 | DCPLANNER ---
internal security manager had message to speak with patient about rescheduling an appointment for patient and help with transportation. internal security manager spoke with patient, rn case management asked patient if he had medicaid, patient stated that he did not have medicaid. internal security manager informed patient that there was nothing that rn case management knew of that would help with transportation to and from appointments unless patient has medicaid. internal security manager offered to reschedule the appointment that was already schedule. Patient stated that he would make thee appointment with primary care.
== END 2020-09-05 20:47 | disposition home or self-care (01) ==
PROVIDERS: Family Medicine; Emergency Provider Emergency Medicine; PCP Nurse Practitioner Family
DX: R22.42 Localized swelling, mass and lump, left lower limb (principal); F17.210 Nicotine dependence, cigarettes, uncomplicated; Z86.718 Personal history of other venous thrombosis and embolism
CPT/HCPCS: 36415; 73701; 80053; 83605; 85025; 87040; 96365; 99283; J3370; J7030; J7050; Q9967

== ENCOUNTER → 2020-09-22 15:02 | Outpatient (BNVA) | payer SELFPAY | PROVIDERS: PCP Nurse Practitioner Family | DX: R07.81 Pleurodynia (principal) | CPT/HCPCS: 71100 ==

== ENCOUNTER → 2020-11-11 11:35 | Outpatient (BNVA) | payer SELFPAY | PROVIDERS: PCP Nurse Practitioner Family; Visit Provider Orthopaedic Surgery | DX: R22.42 Localized swelling, mass and lump, left lower limb (principal); Z20.822 Contact with and (suspected) exposure to COVID-19 | CPT/HCPCS: 87635 ==

== ENCOUNTER 2020-12-01 10:31 | Emergency (ER) | payer MEDICAID, SELFPAY ==
[2020-12-01 10:37] VITALS: BP 124/75; PULSE 100; RESP 15; TEMP 36.7; O2SAT 94; BMI 28.7
--- NOTE | 2020-12-01 11:36 | W.ED.GENADLT ---
HPI - General Adult General: Chief complaint: General Medical Stated complaint: SURGERY SITE POSS INFECTED Time Seen by Provider: 12/01/20 11:29 History of Present Illness: HPI narrative: Patient presents complaining about redness and drainage from top of his wound site where he recently had a large lipoma removed on his left leg. Veronica are still in place Onset (ago): day(s) Location: lower extremity Severity scale (1-10): 3 Associated symptoms: Reports no associated symptoms; Deny chest pain, dyspnea, headache(s), nausea, rash or vomiting Review of Systems Const: Denies: fever(s), chills or body aches Eyes: Denies: change in vision or blurry vision ENMT: Denies: throat pain or nasal congestion Card: Denies: chest pain or dyspnea on exertion Resp: Denies: dyspnea, productive cough or non-productive cough GI: Denies: abdominal pain, nausea or vomiting : Denies: difficulty urinating Musc: Denies: extremity pain Skin/Breast: Reports: erythema, skin tenderness, skin swelling and other (Recent surgery to have a large tumor removed on his left leg); Denies: rash Neuro: Denies: headache(s) Psych: Denies: anxiety or depression Jose/Lymph: Denies: easy bruising PFSH ED PFSH: Medical History (Updated 12/01/20 @ 11:36 by PAOLA Iniguez) Cigarette smoker History of MRSA infection Surgical History H/O circumcision History of back surgery Family History Other Diabetes Unknown family medical history Denies family history of CAD (coronary artery disease) Anesthesia complication Bleeding disorder Cancer Social History Smoking and tobacco status: current every day smoker Second hand smoke exposure: No Smoking risk assessment/counseling performed?: Yes Alcohol intake: never Desire information about alcohol rehabilitation?: No Counseling given: No Desire information about substance/drug rehabilitation?: No Counseling given: No Adopted: Yes Caregiver/support person: No Lives independently: Yes Household members: children Housing: Manufactured/Mobile home Marital status: Single Number of children: 3 service: No Current occupational status: employed 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 Mild swelling around the wound. No active drainage presently there is a slight amount drainage on the bandage. Slightly tender. Rest wound appears intact without any signs of erythema. Course Vital Signs: Vital signs: Vital Signs Temperature 98.1 F 12/01/20 10:37 Pulse Rate 100 12/01/20 10:37 Respiratory Rate 15 12/01/20 10:37 Blood Pressure 124/75 12/01/20 10:37 Pulse Oximetry 94 12/01/20 10:37 MDM - General Adult MDM Narrative: Medical decision making narrative: Patient encouraged to follow-up with surgeon who performed the procedure. Patient does have appointment on the . Patient instructed to come back here or return with the surgeon if worsening symptoms. Take antibiotics as prescribed. Discharge Plan Discharge Patient Disposition: Home Clinical Impression: Cellulitis, wound, post-operative Condition: Stable Prescriptions: New Bactrim DS 800-160 mg tablet 1 tab PO BID 10 Days Qty: 20 RF: 0 No Action aspirin 325 mg Tablet 325 mg PO DAILY RF: 0 Discharge Orders: Discharge ED (Routine); Ordered 12/01/20 Ordered By: Vickey Patel Referrals: Mayela Barba FNP-C [Primary Care Provider] - Discharge Diet: Usual diet Discharge Activity: Increase activity as tolerated Patient Instructions: Cellulitis (ED) Activity Restrictions/Additional Instructions: Follow-up with medical provider as directed. Take medications as prescribed. Return to the ER or your medical provider if condition worsens. Please read and understand discharge instructions. If any questions ask please. Keep appointment on the as scheduled follow-up with surgeon in 14 symptoms return here or contact your surgeon. Coding Level of Care Code ED Media Librarian for Dora Fwd Exam Expanded Problem Focused
== END 2020-12-01 11:37 | disposition home or self-care (01) ==
PROVIDERS: Emergency Provider Nurse Practitioner Family; PCP Nurse Practitioner Family
DX: T81.40XA Infection following a procedure, unspecified, initial encounter (principal); L03.116 Cellulitis of left lower limb; Z86.14 Personal history of Methicillin resistant Staphylococcus aureus infection; F17.210 Nicotine dependence, cigarettes, uncomplicated
CPT/HCPCS: 99281

== ENCOUNTER 2021-09-14 20:41 | Emergency (ER) | payer BC, MEDICAID, SELFPAY ==
--- NOTE | 2021-09-14 20:43 | USR_ITS ---
PROCEDURE INFORMATION: Exam: US Scrotum and US Duplex Artery and Vein, Scrotum, Complete Exam date and time: 09/14/2021 9:29 PM Age: 46 years old Clinical indication: Inflammation; Groin pain and scrotum pain; Additional info: Swelling TECHNIQUE: Imaging protocol: Real-time ultrasound of the scrotum. Real-time duplex ultrasound scan of the arterial and venous flow of the scrotum with B-mode, color Doppler flow and spectral waveform analysis. Complete exam. Duplex images required to evaluate vascular conditions. COMPARISON: US soft tissue/extremity [id number] 11/12/2019 3:54 PM FINDINGS: Right testicle: Right testicle measures 3.5 x 2.9 x 2.5 cm. Left testicle: Left testicle measures 3.2 x 2.4 x 2.2 cm. Epididymides: Bilateral epididymal enlargement with heterogeneous appearance and increased Doppler vascularity suggesting hyperemia compatible with acute epididymitis.. Scrotum: Moderate-large hydroceles are present containing minimal internal echoes and a few thin linear septations. No large solid elements are seen within the hydrocele. Other findings: No intratesticular mass. Symmetric intratesticular parenchymal flow demonstrating normal spectral waveforms with no evidence of ischemia/torsion. There is mild diffuse scrotal skin thickening. US/US scrotum [id number] IMPRESSION: 1. Bilateral acute epididymitis. 2. Moderate-large bilateral hydroceles, likely reactive. Minimal internal echoes and thin septations are present. Clinical correlation and follow-up should be obtained. Follow-up imaging may also considered to exclude development of pyocele. 3. No testicular mass, parenchymal ischemia/torsion or drainable abscess.
[2021-09-14 21:03] VITALS: BP 121/78; PULSE 95; RESP 13; TEMP 37.1; O2SAT 99; BMI 28.7
[2021-09-14] MEDS: acetaminophen 500 mg Tablet PO (21:19)
[2021-09-14 21:20] VITALS: BP 127/52; PULSE 109; RESP 16; O2SAT 99
--- NOTE | 2021-09-14 21:29 | W.ED.MALEGU ---
HPI - Male Genitourinary General: Chief complaint: Urogenital-Male Stated complaint: swollen testicles Time Seen by Provider: 09/14/21 21:16 [facility] ED PFSH: Medical History (Updated 12/09/20 @ 00:01 by ) Cigarette smoker History of MRSA infection Surgical History H/O circumcision History of back surgery Family History Other Diabetes Unknown family medical history Denies family history of CAD (coronary artery disease) Anesthesia complication Bleeding disorder Cancer Social History Smoking and tobacco status: current every day smoker Second hand smoke exposure: No Smoking risk assessment/counseling performed?: Yes Alcohol intake: never Desire information about alcohol rehabilitation?: No Counseling given: No Desire information about substance/drug rehabilitation?: No Counseling given: No Adopted: Yes Caregiver/support person: No Lives independently: Yes Household members: children Housing: Manufactured/Mobile home Marital status: Single Number of children: 3 service: No Current occupational status: employed 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
--- NOTE | 2021-09-14 21:32 | W.ED.GENADLT ---
HPI - General Adult General: Chief complaint: Urogenital-Male Stated complaint: swollen testicles Time Seen by Provider: 09/14/21 21:16 History of Present Illness: Patient is a 46-year-old male presents emergency room with 1 week bilateral testicular swelling and pain. Patient tells me about a week ago he woke up with atraumatic right-sided testicular swelling. Since then the left testicle has been swollen. Patient reports mild hematuria on the first day but denies any new penile discharge. Since then, patient has had worsening pain in the testes and noticed scrotal swelling. Patient denies any nausea/vomiting but reports lower abdominal pain. Patient denies any active dysuria, hematuria melena hematochezia or diarrhea. Patient denies any trauma to the groin. Onset:1 week ago Duration:1 week Location:home Severity:moderate Associated symptoms: Deny chest pain, dyspnea, nausea, rash, palpitations or vomiting Review of Systems Const: Denies: fever(s) or chills Eyes: Denies: change in vision ENMT: Denies: mouth pain Card: Denies: chest pain or palpitations Resp: Denies: dyspnea or non-productive cough GI: Denies: abdominal pain, nausea, vomiting or diarrhea : Reports: other (+scrotal swelling and pain); Denies: dysuria Musc: Denies: extremity pain Skin/Breast: Denies: rash or new lesions Neuro: Denies: weakness in extremities Psych: Reports: other (Normal mood) Jose/Lymph: Denies: easy bruising PFSH ED PFSH: Medical History Cigarette smoker History of MRSA infection Surgical History H/O circumcision History of back surgery Family History Other Diabetes Unknown family medical history Denies family history of CAD (coronary artery disease) Anesthesia complication Bleeding disorder Cancer Social History Smoking and tobacco status: current every day smoker Second hand smoke exposure: No Smoking risk assessment/counseling performed?: Yes Alcohol intake: never Desire information about alcohol rehabilitation?: No Counseling given: No Desire information about substance/drug rehabilitation?: No Counseling given: No Adopted: Yes Caregiver/support person: No Lives independently: Yes Household members: children Housing: Manufactured/Mobile home Marital status: Single Number of children: 3 service: No Current occupational status: employed 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 History of recent travel: No Current gender identity: Male Physical Exam Const: COMMON NORMALS: alert HENMT: COMMON NORMALS: atraumatic HEAD & SCALP: atraumatic MOUTH: moist mucous membranes not abnormal Eye: COMMON NORMALS: EOMs intact bilaterally and conjunctivae normal CONJUNCTIVA: Yes conjunctivae normal Neck/C-Spine: COMMON NORMALS: full ROM and supple Resp: COMMON NORMALS: normal respiratory effort and clear to auscultation bilaterally AUSCULTATION: clear to auscultation bilaterally Cardio: RATE: tachycardic GI: COMMON NORMALS: Soft to palpation and non-tender PALPATION: Yes Soft to palpation : OTHER: + Swollen testes bilaterally tender to palpation, intact hysteric reflex bilaterally, Extremity: COMMON NORMALS: full ROM Neuro: SENSORIUM/ORIENTATION: Yes alert MOTOR EXAM: No Abnormal motor strength present and Other motor observations present (no focal motor deficits) Psych: COMMON NORMALS: speech normal SPEECH: Yes normal speech MOOD & AFFECT: Yes euthymic mood Course Vital Signs: Vital signs: Vital Signs Temperature 98.8 F 09/14/21 21:03 Pulse Rate 88 09/14/21 23:48 Respiratory Rate 16 09/14/21 23:48 Blood Pressure 104/82 09/14/21 23:48 Pulse Oximetry 99 09/14/21 23:48 MDM - General Adult Medical Decision Making 46-year-old male presenting to the emergency room for evaluation of bilateral testicular swelling and pain x1 week. On physical exam, patient has bilateral scrotal swelling with tenderness to palpation. Intact cremestrict reflex. Work-up showed WBC of 12.7K. Ultrasound showed inflamed epidermitis b/l with reactive hydrocele. Patient received Tylenol and Toradol in the emergency with improvement in pain. S/p ceftriaxone 250mg in the ED. I have given patient follow up with our dependency case manager to be seen by our outpatient Urology for evaluation of scrotal swelling b/l. Patient aware of a call from our dependency case manager to schedule for appointment(s) and verbalizes understanding of the importance of following up. Rx tylenol, ibuprofen and menthol PRN pain, doxycycline 100mg x 14 days Disposition: Discharge. Patient counseled regarding diagnostic impression, treatment plan. Patient given ED strict return precautions to return for continuation, worsening, or development of new symptoms. Instructed to f/u w/ Urology regarding symptoms today. Patient verbalized understanding. Lab Data : 09/14/21 22:24 09/14/21 22:24 Radiology Impressions Scrotum Ultrasound 09/14/21 20:43 IMPRESSION: 1. Bilateral acute epididymitis. 2. Moderate-large bilateral hydroceles, likely reactive. Minimal internal echoes and thin septations are present. Clinical correlation and follow-up should be obtained. Follow-up imaging may also considered to exclude development of pyocele. 3. No testicular mass, parenchymal ischemia/torsion or drainable abscess. Laboratory Results WBC 12.7 10^3/uL (4.0-10.0) H 09/14/21 22:24 RBC 4.71 10^6/uL (4.1-5.3) 09/14/21 22:24 Hgb 14.0 g/dL (11.7-16.6) 09/14/21 22:24 Hct 42.8 % (42.0-52.0) 09/14/21 22:24 MCV 90.9 fl (80-94) 09/14/21 22:24 MCH 29.7 pg (28.0-34.0) 09/14/21 22:24 MCHC 32.7 g/dL (30.0-36.0) 09/14/21 22:24 RDW 13.2 % (12.1-15.1) 09/14/21 22:24 Plt Count 251 10^3/cmm (130-400) 09/14/21 22:24 MPV 9.3 fL (7.4-10.4) 09/14/21 22:24 Neut % (Auto) 71.0 % 09/14/21 22:24 Lymph % (Auto) 11.5 % 09/14/21 22:24 [place] % (Auto) 14.7 % 09/14/21 22:24 Eos % (Auto) 1.6 % 09/14/21 22:24 Baso % (Auto) 0.7 % 09/14/21 22:24 Neut # (Auto) 9.03 10^3/uL (1.8-7.7) H 09/14/21 22:24 Lymph # (Auto) 1.5 10^3/uL (0.8-4.8) 09/14/21 22:24 [place] # (Auto) 1.9 10^3/uL (0.2-0.9) H 09/14/21 22:24 Eos # (Auto) 0.2 10^3/uL (0.0-0.8) 09/14/21 22:24 Baso # (Auto) 0.1 10^3/uL (0.0-0.1) 09/14/21 22:24 Nucleated RBC % (auto) 0 % 09/14/21 22:24 Nucleated RBCs # 0.0 /100WBC 09/14/21 22:24 Sodium 135 mmol/L (136-145) L 09/14/21 22:24 Potassium 4.0 mmol/L (3.5-5.1) 09/14/21 22:24 Chloride 97 mmol/L (98-107) L 09/14/21 22:24 Carbon Dioxide 25 mmol/L (22-29) 09/14/21 22:24 Anion Gap 17.0 (5-19) 09/14/21 22:24 BUN 9 mg/dL (6-20) 09/14/21 22:24 Creatinine 1.1 mg/dL (0.7-1.2) 09/14/21 22:24 GFR Calculation 72.7 mL/min (90-130) L 09/14/21 22:24 Glucose 113 mg/dL (65-115) 09/14/21 22:24 Calculated Osmolality 279 mOsm/kg (285-295) L 09/14/21 22:24 Calcium 9.3 mg/dL (8.5-10.5) 09/14/21 22:24 Total Bilirubin 0.3 mg/dL (0.15-1.2) 09/14/21 22:24 AST 10 U/L (0-40) 09/14/21 22:24 ALT 8 U/L (0-41) 09/14/21 22:24 Alkaline Phosphatase 83 IU/L (40-130) 09/14/21 22:24 Total Protein 6.7 g/dL (6.6-8.7) 09/14/21 22:24 Albumin 4.1 g/dL (3.5-5.2) 09/14/21 22:24 Globulin 2.6 g/dL (1.3-4.6) 09/14/21 22:24 Lipase 31 U/L (13-60) 09/14/21 22:24 Urine Color Yellow (Yellow) 09/14/21 21:50 Urine Appearance Sl hazy (CLEAR) 09/14/21 21:50 Urine pH 5 (5-7) 09/14/21 21:50 Ur Specific [place] 1.020 (1.005-1.030) 09/14/21 21:50 Urine Protein Neg (Negative) 09/14/21 21:50 Urine Glucose (UA) Norm (Normal) 09/14/21 21:50 Urine Ketones 1+ (Negative) H 09/14/21 21:50 Urine Blood 2+ (Negative) H 09/14/21 21:50 Urine Nitrate Negative (Negative) 09/14/21 21:50 Urine Bilirubin Neg (Negative) 09/14/21 21:50 Urine Urobilinogen Norm mg/dL (Negative) 09/14/21 21:50 Ur Leukocyte Esterase 2+ (Negative) H 09/14/21 21:50 Urine RBC 0-4 /hpf (0-2) H 09/14/21 21:50 Urine WBC 55-80 /hpf (0-5) H 09/14/21 21:50 Ur Squamous Epith Cells 0-4 /hpf (0-5) H 09/14/21 21:50 Amorphous Sediment Not Reportable 09/14/21 21:50 Urine Bacteria Trace /hpf (NONE) 09/14/21 21:50 Urine Mucus Trace /hpf 09/14/21 21:50 Imaging Data Other Imaging: Radiologist's impression: [address] [place] [address] Ultrasound Report Signed Patient: Sandro Metz Unit #: [id number] : 1975 Age/Sex: 46 / M ADM Date: 09/14/21 Loc: ER Room/Bed: Attending Dr: Ordering Provider/Ordering MD: Marisabel See MD Date of Service: 09/14/21 Procedure(s): US scrotum [id number] Accession Number(s): [id number] Report Number: [id number] PROCEDURE INFORMATION: Exam: US Scrotum and US Duplex Artery and Vein, Scrotum, Complete Exam date and time: 09/14/2021 9:29 PM Age: 46 years old Clinical indication: Inflammation; Groin pain and scrotum pain; Additional info: Swelling TECHNIQUE: Imaging protocol: Real-time ultrasound of the scrotum. Real-time duplex ultrasound scan of the arterial and venous flow of the scrotum with B-mode, color Doppler flow and spectral waveform analysis. Complete exam. Duplex images required to evaluate vascular conditions. COMPARISON: US soft tissue/extremity [id number] 11/12/2019 3:54 PM FINDINGS: Right testicle: Right testicle measures 3.5 x 2.9 x 2.5 cm. Left testicle: Left testicle measures 3.2 x 2.4 x 2.2 cm. Epididymides: Bilateral epididymal enlargement with heterogeneous appearance and increased Doppler vascularity suggesting hyperemia compatible with acute epididymitis.. Scrotum: Moderate-large hydroceles are present containing minimal internal echoes and a few thin linear septations. No large solid elements are seen within the hydrocele. Other findings: No intratesticular mass. Symmetric intratesticular parenchymal flow demonstrating normal spectral waveforms with no evidence of ischemia/torsion. There is mild diffuse scrotal skin thickening. US/US scrotum [id number] IMPRESSION: 1. Bilateral acute epididymitis. 2. Moderate-large bilateral hydroceles, likely reactive. Minimal internal echoes and thin septations are present. Clinical correlation and follow-up should be obtained. Follow-up imaging may also considered to exclude development of pyocele. 3. No testicular mass, parenchymal ischemia/torsion or drainable abscess. ? Dictated By: Param Mata MD Signed By: Param Mata MD Signed Date/Time: 09/14/212206 DD/ 28 Discharge Plan Discharge Patient Disposition: Home Clinical Impression: Swollen testis, Epididymitis Condition: Stable Prescriptions: New acetaminophen 500 mg tablet 500 mg PO Q6H PRN (Reason: pain) 5 Days Qty: 20 0RF ibuprofen 600 mg tablet 600 mg PO Q8H PRN (Reason: pain) 5 Days Qty: 15 0RF Biofreeze (menthol) 5 % gel 1 ea topical BID PRN (Reason: pain) 10 Days Qty: 1 0RF doxycycline hyclate 100 mg capsule 100 mg PO BID 14 Days Qty: 28 0RF No Action aspirin 325 mg Tablet 325 mg PO DAILY 0RF Discharge Orders: Discharge ED (Routine); Ordered 09/14/21 Ordered By: Maria Luz Mcmillan Referrals: Mayela Barba FNP-Collins [Primary Care Provider] - Discharge Diet: Advance as tolerated Discharge Activity: Increase activity as tolerated Patient Instructions: Testicle Pain (ED), Scrotal Pain (ED) Activity Restrictions/Additional Instructions: Our dependency case manager will have you follow-up with Dr. Thao in the next few days. You would be expected to have a phone call with our dependency case manager who will put you on the schedule. You can expect a call from us in the next 2-3 days. If you don't hear from us, call us back in the emergency room at [phone]. Stand Alone Forms: Work/School Release Coding Level of Care Code ED Sterile Processing Tech for Dora Fwd Exam Comprehensive
[2021-09-14 22:11] LABS: Add Urine Microscopic? YES; Bilirubin Urine Neg (Negative); Blood Urine 2+ (Negative); Glucose Urine UA Norm (Normal); Ketones Urine 1+ (Negative); Leukocyte Esterase Urine 2+ (Negative); Nitrate Urine Negative (Negative); Protein Urine Neg (Negative); Urine Appearance SL Hazy (CLEAR); Urine Color Yellow (Yellow); Urobilinogen Urine Norm (Negative); pH Urine 5 (5-7)
[2021-09-14 22:16] LABS: Add Urine Culture? Yes; Bacteria Urine TRACE /hpf; Mucus Urine TRACE /hpf; RBC Urine 0-4 /hpf (0-2); Squamous Epithelial Cell Urine 0-4 /hpf (0-5); WBC Urine 55-80 /hpf (0-5)
[2021-09-14] MEDS: ketorolac 30 mg/mL INJ IM (22:23)
[2021-09-14 22:27] LABS: Basophils # 0.1 10^3/uL (0.0-0.1); Basophils % 0.7 %; Eosinophils # 0.2 10^3/uL (0.0-0.8); Eosinophils % 1.6 %; Hematocrit 42.8 % (42.0-52.0); Lymphocytes # 1.5 10^3/uL (0.8-4.8); Lymphocytes % 11.5 %; Mean Corpuscular HGB Conc 32.7 g/dL (30.0-36.0); Mean Corpuscular Hemoglobin 29.7 pg (28.0-34.0); Mean Corpuscular Volume 90.9 fl (80-94); Mean Platelet Volume 9.3 fL (7.4-10.4); Monocytes # 1.9 10^3/uL (0.2-0.9); Monocytes % 14.7 %; Neutrophils # 9.03 10^3/uL (1.8-7.7); Nucleated Red Blood Cells % 0 %; Platelet Count 251 10^3/cmm (130-400); Red Blood Count 4.71 10^6/uL (4.1-5.3); Red Cell Distribution Width 13.2 % (12.1-15.1); White Blood Count 12.7 10^3/uL (4.0-10.0)
[2021-09-14 22:29] VITALS: BP 128/82; PULSE 93; RESP 16; O2SAT 95
[2021-09-14 22:42] LABS: Alanine Aminotransferase 8 U/L (0-41); Albumin Level 4.1 g/dL (3.5-5.2); Alkaline Phosphatase 83 IU/L (40-130); Aspartate Amino Transferase 10 U/L (0-40); Blood Urea Nitrogen 9 mg/dL (6-20); Calcium 9.3 mg/dL (8.5-10.5); Carbon Dioxide 25 mmol/L (22-29); Chloride 97 mmol/L (98-107); Globulin 2.6 g/dL (1.3-4.6); Glomerular Filtration Rate 72.7 mL/min (90-130); Glucose 113 mg/dL (65-115); Lipase 31 U/L (13-60); Osmolality Calculated 279 mOsm/kg (285-295); Sodium 135 mmol/L (136-145); Total Bilirubin 0.3 mg/dL (0.15-1.2); Total Protein 6.7 g/dL (6.6-8.7)
[2021-09-14 23:36] VITALS: BP 104/82; PULSE 88; RESP 16; O2SAT 99
[2021-09-14 23:48] VITALS: BP 104/82; PULSE 88; RESP 16; O2SAT 99
--- NOTE | 2021-09-15 09:56 | DCPLANNER ---
Addendum entered by Kristin Davila 09/28/21 20:24: Patient had a follow up appointment scheduled with Dr. Thao - patient did not attend appointment. Addendum entered by Kristin Davila 09/15/21 10:44: Patient has a follow up appointment scheduled for , September 22, 2021 at 9:[address] Thao. Clinic will call patient with appointment information. Original Note: accounting practice manager had message to schedule a follow up appointment for patient with urology. accounting practice manager sent patients information to the front office staff at urology. Patients information will be printed and reviewed. Clinic will call patient with appointment information.
== END 2021-09-14 23:40 | disposition home or self-care (01) ==
PROVIDERS: Emergency Provider Emergency Medicine; PCP Nurse Practitioner Family
DX: F17.210 Nicotine dependence, cigarettes, uncomplicated (principal); Z86.14 Personal history of Methicillin resistant Staphylococcus aureus infection; N45.1 Epididymitis
CPT/HCPCS: 76870; 80053; 81001; 83690; 85025; 87086; 96372; 99283; J0696; J1885

== ENCOUNTER 2021-09-23 17:07 | Emergency (ER) | payer BC, MEDICAID, SELFPAY ==
[2021-09-23 17:11] VITALS: BP 124/78; PULSE 95; RESP 15; TEMP 36.3; O2SAT 97; BMI 28.7
--- NOTE | 2021-09-23 17:20 | W.ED.GENADLT ---
HPI - General Adult General: Chief complaint: Urogenital-Male Stated complaint: TESTICULAR PAIN Time Seen by Provider: 09/23/21 17:08 History of Present Illness: Patient is a 46-year-old male who presents the emergency room with concerns of nearly 2 weeks of bilateral testicular swelling and pain. He tells me that about 2 weeks ago, he woke up with atraumatic right-sided testicular swelling and pain. Since then the left testicle appears to be swollen. Patient was initially seen in by me on 09/14/2021 was found to have epididymitis. Patient had a white count of 12.7K. Patient was given ceftriaxone and encouraged to take doxycycline outpatient. Patient says that he has been taking doxycycline since then. However, the right scrotum appears to be more swollen and painful decided come to the emergency room for evaluation. Patient reports lower abdominal pain denies nausea/vomiting fever/chills. Patient denies any trauma. Denies any new penile discharge at this time. Onset:2 weeks ago Duration: ongoing Location:[facility] Severity:moderate Associated symptoms: Deny chest pain, dyspnea, nausea, rash, palpitations or vomiting Review of Systems Const: Denies: fever(s) or chills Eyes: Denies: change in vision ENMT: Denies: mouth pain Card: Denies: chest pain or palpitations Resp: Denies: dyspnea or non-productive cough GI: Denies: abdominal pain, nausea, vomiting or diarrhea : Reports: other (+testicular pain and swelling); Denies: dysuria Musc: Denies: extremity pain Skin/Breast: Denies: rash or new lesions Neuro: Denies: weakness in extremities Psych: Reports: other (Normal mood) Jose/Lymph: Denies: easy bruising PFSH ED PFSH: Medical History (Updated 09/23/21 @ 18:44 by Maria Luz Mcmillan MD) Cigarette smoker Epididymitis History of MRSA infection Surgical History H/O circumcision History of back surgery Family History Other Diabetes Unknown family medical history Denies family history of CAD (coronary artery disease) Anesthesia complication Bleeding disorder Cancer Social History Smoking and tobacco status: current every day smoker Second hand smoke exposure: No Smoking risk assessment/counseling performed?: Yes Alcohol intake: never Desire information about alcohol rehabilitation?: No Counseling given: No Desire information about substance/drug rehabilitation?: No Counseling given: No Adopted: Yes Caregiver/support person: No Lives independently: Yes Household members: children Housing: Manufactured/Mobile home Marital status: Single Number of children: 3 service: No Current occupational status: employed 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 History of recent travel: No Current gender identity: Male Physical Exam Const: COMMON NORMALS: alert HENMT: COMMON NORMALS: atraumatic HEAD & SCALP: atraumatic MOUTH: moist mucous membranes not abnormal Eye: COMMON NORMALS: EOMs intact bilaterally and conjunctivae normal CONJUNCTIVA: Yes conjunctivae normal Neck/C-Spine: COMMON NORMALS: full ROM and supple Resp: COMMON NORMALS: normal respiratory effort and clear to auscultation bilaterally AUSCULTATION: clear to auscultation bilaterally Cardio: COMMON NORMALS: regular rate RATE: regular rate GI: COMMON NORMALS: Soft to palpation and non-tender PALPATION: Yes Soft to palpation : OTHER: Normal external genitalia, +R > L testicular tenderness, right-sided testicular swelling, intact cremesteric reflexes b/l Extremity: COMMON NORMALS: full ROM Neuro: SENSORIUM/ORIENTATION: Yes alert MOTOR EXAM: No Abnormal motor strength present and Other motor observations present (no focal motor deficits) Psych: COMMON NORMALS: speech normal SPEECH: Yes normal speech MOOD & AFFECT: Yes euthymic mood Course Vital Signs: Vital signs: Vital Signs Temperature 97.5 F L 09/23/21 17:42 Pulse Rate 75 09/23/21 19:09 Respiratory Rate 15 09/23/21 19:09 Blood Pressure 136/90 09/23/21 19:09 Pulse Oximetry 99 09/23/21 19:09 [facility] - General Adult Medical Decision Making 46-year-old male with a diagnosis of epididymitis presenting to the emergency room with worsening testicular pain and swelling x2 weeks. Patient is afebrile with moderate tenderness palpation over the right testes. Intact cremesteric reflex. White count of 5.3K today. UA is negative for any acute finding. Patient initially was noted to be tachycardic on arrival in triage, however patient's heart rate improved with pain medication: Toradol and morphine. Ultrasound showed improving hydrocele and epididermitis. I have given patient follow up with our casework specialist to be seen by our outpatient Urology for ongoing testicular pain. Patient aware of a call from our casework specialist to schedule for appointment(s) and verbalizes understanding of the importance of following up. Rx tylenol PRN pain Disposition: Discharge. Patient counseled regarding diagnostic impression, treatment plan. Patient given ED strict return precautions to return for continuation, worsening, or development of new symptoms. Instructed to f/u w/ Urology regarding symptoms today. Patient verbalized understanding. Lab Data : 09/23/21 17:40 09/23/21 17:40 Radiology Impressions Scrotum Ultrasound 09/23/21 17:23 IMPRESSION: 1. Right hydrocele. 2. Left varicocele. 3. No evidence of torsion. 4. Epididymitis and hydroceles are improved compared with 09/14/2021. Laboratory Results WBC 5.3 10^3/uL (4.0-10.0) 09/23/21 17:40 RBC 5.00 10^6/uL (4.1-5.3) 09/23/21 17:40 Hgb 14.8 g/dL (11.7-16.6) 09/23/21 17:40 Hct 45.0 % (42.0-52.0) 09/23/21 17:40 MCV 90.0 fl (80-94) 09/23/21 17:40 MCH 29.6 pg (28.0-34.0) 09/23/21 17:40 MCHC 32.9 g/dL (30.0-36.0) 09/23/21 17:40 RDW 13.1 % (12.1-15.1) 09/23/21 17:40 Plt Count 277 10^3/cmm (130-400) 09/23/21 17:40 MPV 8.9 fL (7.4-10.4) 09/23/21 17:40 Neut % (Auto) 49.8 % 09/23/21 17:40 Lymph % (Auto) 28.4 % 09/23/21 17:40 [place] % (Auto) 18.7 % 09/23/21 17:40 Eos % (Auto) 1.7 % 09/23/21 17:40 Baso % (Auto) 1.0 % 09/23/21 17:40 Neut # (Auto) 2.62 10^3/uL (1.8-7.7) 09/23/21 17:40 Lymph # (Auto) 1.5 10^3/uL (0.8-4.8) 09/23/21 17:40 [place] # (Auto) 1.0 10^3/uL (0.2-0.9) H 09/23/21 17:40 Eos # (Auto) 0.1 10^3/uL (0.0-0.8) 09/23/21 17:40 Baso # (Auto) 0.1 10^3/uL (0.0-0.1) 09/23/21 17:40 Nucleated RBC % (auto) 0 % 09/23/21 17:40 Nucleated RBCs # 0.0 /100WBC 09/23/21 17:40 Sodium 137 mmol/L (136-145) 09/23/21 17:40 Potassium 4.0 mmol/L (3.5-5.1) 09/23/21 17:40 Chloride 100 mmol/L (98-107) 09/23/21 17:40 Carbon Dioxide 25 mmol/L (22-29) 09/23/21 17:40 Anion Gap 16.0 (5-19) 09/23/21 17:40 BUN 15 mg/dL (6-20) 09/23/21 17:40 Creatinine 1.1 mg/dL (0.7-1.2) 09/23/21 17:40 GFR Calculation 72.7 mL/min (90-130) L 09/23/21 17:40 Glucose 80 mg/dL (65-115) 09/23/21 17:40 Calculated Osmolality 284 mOsm/kg (285-295) L 09/23/21 17:40 Calcium 9.2 mg/dL (8.5-10.5) 09/23/21 17:40 Urine Color Yellow (Yellow) 09/23/21 17:40 Urine Appearance Hazy (CLEAR) A 09/23/21 17:40 Urine pH 6 (5-7) 09/23/21 17:40 Ur Specific [place] 1.020 (1.005-1.030) 09/23/21 17:40 Urine Protein Neg (Negative) 09/23/21 17:40 Urine Glucose (UA) 1+ (Normal) H 09/23/21 17:40 Urine Ketones Negative (Negative) 09/23/21 17:40 Urine Blood Neg (Negative) 09/23/21 17:40 Urine Nitrate Negative (Negative) 09/23/21 17:40 Urine Bilirubin Neg (Negative) 09/23/21 17:40 Urine Urobilinogen Norm mg/dL (Negative) 09/23/21 17:40 Ur Leukocyte Esterase Negative (Negative) 09/23/21 17:40 Imaging Data Other Imaging: Radiologist's impression: [address] [address] Ultrasound Report Signed Patient: Sandro Metz Unit #: [id number] : 1975 Age/Sex: 46 / M ADM Date: 09/23/21 Loc: ER Room/Bed: Attending Dr: Ordering Provider/Ordering MD: Maria Luz Mcmillan MD Date of Service: 09/23/21 Procedure(s): US scrotum [id number] Accession Number(s): [id number] Report Number: [id number] PROCEDURE INFORMATION: Exam: US Scrotum Exam date and time: 09/23/2021 5:53 PM Age: 46 years old Clinical indication: Scrotum pain; Additional info: R sided testicular pain TECHNIQUE: Imaging protocol: Real-time ultrasound of the scrotum and contents with color Doppler and image documentation. COMPARISON: US scrotum [id number] 09/14/2021 9:29 PM FINDINGS: Right testicle: Right testicle measures 3.7 x 2.2 x 2.4 cm and shows normal uniform echogenicity. No focal mass is seen in the right testicle. There is normal Doppler flow. Left testicle: Left testicle measures 3.3 x 1.7 x 2.3 cm. There is normal uniform echogenicity in the left testicle. There is normal Doppler flow. No focal mass is identified. Epididymides: Normal. Scrotum: There is moderate right hydrocele. There is what appears to be a moderate sized varicocele on the left. US/US scrotum [id number] IMPRESSION: 1. Right hydrocele. 2. Left varicocele. 3. No evidence of torsion. 4. Epididymitis and hydroceles are improved compared with 09/14/2021. ? Dictated By: Jason Garcia Signed By: Jason Garcia Signed Date/Time: 09/23/211833 DD/ 52 Discharge Plan Discharge Patient Disposition: Home Clinical Impression: Pain in testicle, Scrotal swelling, Epididymal pain Condition: Stable Prescriptions: New acetaminophen 500 mg tablet 500 mg PO Q6H PRN (Reason: pain) 5 Days Qty: 20 0RF No Action aspirin 325 mg Tablet 325 mg PO DAILY 0RF doxycycline hyclate 100 mg capsule 100 mg PO BID 14 Days Qty: 28 0RF Discharge Orders: Discharge ED (Routine); Ordered 09/23/21 Ordered By: Maria Luz Mcmillan Referrals: Mayela Barba FNP-C [Primary Care Provider] - Discharge Diet: Advance as tolerated Discharge Activity: Increase activity as tolerated Patient Instructions: Testicle Pain (ED), Scrotal Pain (ED) Activity Restrictions/Additional Instructions: Our casework specialist will have you follow-up with Urology in the next few days. You would be expected to have a phone call with our casework specialist who will put you on the schedule. You can expect a call from us in the next 2-3 days. If you don't hear from us, call us back in the emergency room at [phone]. Coding Level of Care Code ED Swim Instructor for Dora Fwd Exam Comprehensive
--- NOTE | 2021-09-23 17:23 | USR_ITS ---
PROCEDURE INFORMATION: Exam: US Scrotum Exam date and time: 09/23/2021 5:53 PM Age: 46 years old Clinical indication: Scrotum pain; Additional info: R sided testicular pain TECHNIQUE: Imaging protocol: Real-time ultrasound of the scrotum and contents with color Doppler and image documentation. COMPARISON: US scrotum [id number] 09/14/2021 9:29 PM FINDINGS: Right testicle: Right testicle measures 3.7 x 2.2 x 2.4 cm and shows normal uniform echogenicity. No focal mass is seen in the right testicle. There is normal Doppler flow. Left testicle: Left testicle measures 3.3 x 1.7 x 2.3 cm. There is normal uniform echogenicity in the left testicle. There is normal Doppler flow. No focal mass is identified. Epididymides: Normal. Scrotum: There is moderate right hydrocele. There is what appears to be a moderate sized varicocele on the left. US/US scrotum [id number] IMPRESSION: 1. Right hydrocele. 2. Left varicocele. 3. No evidence of torsion. 4. Epididymitis and hydroceles are improved compared with 09/14/2021.
[2021-09-23] MEDS: acetaminophen 500 mg Tablet PO (17:38)
[2021-09-23] MEDS: ketorolac 30 mg/mL INJ IVP (17:38)
[2021-09-23 17:42] VITALS: BP 150/84; PULSE 113; RESP 15; TEMP 36.4; O2SAT 100
[2021-09-23 17:49] LABS: Add Urine Microscopic? NO; Charge for UA Resulting for Rev
[2021-09-23 17:52] LABS: Basophils # 0.1 10^3/uL (0.0-0.1); Eosinophils # 0.1 10^3/uL (0.0-0.8); Eosinophils % 1.7 %; Hemoglobin 14.8 g/dL (11.7-16.6); Lymphocytes # 1.5 10^3/uL (0.8-4.8); Lymphocytes % 28.4 %; Mean Corpuscular HGB Conc 32.9 g/dL (30.0-36.0); Mean Corpuscular Hemoglobin 29.6 pg (28.0-34.0); Mean Platelet Volume 8.9 fL (7.4-10.4); Monocytes % 18.7 %; Neutrophils # 2.62 10^3/uL (1.8-7.7); Neutrophils % 49.8 %; Nucleated Red Blood Cells % 0 %; Platelet Count 277 10^3/cmm (130-400); Red Cell Distribution Width 13.1 % (12.1-15.1); White Blood Count 5.3 10^3/uL (4.0-10.0)
[2021-09-23 17:54] LABS: Urine Appearance Hazy (CLEAR); Urine Color Yellow (Yellow); pH Urine 6 (5-7)
[2021-09-23 17:55] LABS: Bilirubin Urine Neg (Negative); Blood Urine Neg (Negative); Glucose Urine UA 1+ (Normal); Ketones Urine Negative (Negative); Leukocyte Esterase Urine Negative (Negative); Nitrate Urine Negative (Negative); Protein Urine Neg (Negative); Urobilinogen Urine Norm (Negative)
[2021-09-23 18:06] LABS: Blood Urea Nitrogen 15 mg/dL (6-20); Calcium 9.2 mg/dL (8.5-10.5); Carbon Dioxide 25 mmol/L (22-29); Chloride 100 mmol/L (98-107); Glomerular Filtration Rate 72.7 mL/min (90-130); Glucose 80 mg/dL (65-115); Osmolality Calculated 284 mOsm/kg (285-295); Sodium 137 mmol/L (136-145)
[2021-09-23 18:12] VITALS: BP 150/84; PULSE 77; RESP 15; O2SAT 99
[2021-09-23 18:17] VITALS: RESP 14; O2SAT 100
[2021-09-23] MEDS: morphine 4 mg/mL SDV 1 mL IM (18:17)
[2021-09-23 19:06] VITALS: BP 136/90; PULSE 75; RESP 15; O2SAT 99
[2021-09-23 19:09] VITALS: BP 136/90; PULSE 75; RESP 15; O2SAT 99
== END 2021-09-23 19:05 | disposition home or self-care (01) ==
PROVIDERS: Emergency Provider Emergency Medicine; PCP Nurse Practitioner Family
DX: N45.1 Epididymitis (principal); N43.3 Hydrocele, unspecified; R00.0 Tachycardia, unspecified
CPT/HCPCS: 76870; 80048; 81003; 85025; 96372; 96374; 99284; J1885; J2270

== ENCOUNTER 2023-03-17 05:56 | Emergency (ER) | payer MEDICAID, SELFPAY ==
[2023-03-17 06:10] VITALS: PULSE 102; RESP 20; TEMP 37.2; O2SAT 95; BMI 25.8
--- NOTE | 2023-03-17 06:34 | CTR_ITS ---
PROCEDURE INFORMATION: Exam: CT Abdomen And Pelvis Without Contrast Exam date and time: 03/17/2023 6:58 AM Age: 47 years old Clinical indication: Abdominal pain; Flank; Left; Additional info: Left flank pain with hematuria.No history of trauma or recent surgery is provided. Previous history of left thigh mass. TECHNIQUE: Imaging protocol: Computed tomography of the abdomen and pelvis without contrast. 548image(s) are provided. Radiation optimization: All CT scans at this facility use at least one of these dose optimization techniques: automated exposure control; mA and/or kV adjustment per patient size (includes targeted exams where dose is matched to clinical indication); or iterative reconstruction. Other technique: Axial images are available with sagittal and coronal reconstruction views. Automated dose exposure control is utilized. The DLP is 486.65. REPORTING DATA: Count of CT and Cardiac NM exams in prior 12 months: This patient has received 0 known CTs and 0 known cardiac nuclear medicine studies in the 12 months prior to the current study. COMPARISON: 1. No recent CT abdomen is currently available. 2. CT femur LT w con [id number] 09/05/2020 7:22 PM RADIATION DOSE METRICS: Total DLP (mGy-cm): 486.65 FINDINGS: Lungs: No lobar consolidation is appreciated. There is some subsegmental atelectasis versus post inflammatory scarring demonstrated. There is some lung base nodularity for example including posterior basal right lower lobe of about 4 mm image 25. Fleischner Society follow up recommendations for incidental nodules are not indicated. Follow up per the patient's medical condition. Liver: There is some slightly heterogeneous low-attenuation of the liver overall and could be seen with some steatosis. Gallbladder and bile ducts: The gallbladder appears slightly contracted with some trace sludge. Pancreas: No pancreatic ductal dilatation or calculus is currently appreciated. Spleen: Unremarkable. Adrenal glands: Unremarkable. Kidneys and ureters: There is abnormal heterogeneous appearance overall of the right kidney with ill-defined corticomedullary and pelvicalyceal margins along with some stranding. There is some mass effect about the right renal margins and pelvis. This appears overall ill-defined although demonstrates some greatest thickness of about 5.9 x 4.5 cm in diameter with craniocaudal length of approximately 5.3 cm. No definite radiopaque obstructive renal calculus or hydronephrosis is appreciated along the expected course. There is some nonobstructive calculus appearance of the left inferior pole calices measuring about 4 x 5 mm. Stomach and bowel: Some aspects of the colon are undistended. This may also be peristaltic related.There is abundant stool present limiting mucosal detail evaluation.The bowel gas pattern appears nonobstructive. There is a small sliding-type hiatal hernia demonstrated with slight gastroesophageal fold thickening. Appendix: There is an unremarkable overall air-filled luminal appearance of the appendix. There is some adjacent fluid albeit from the ascites. Intraperitoneal space: No gross layering free air is appreciated. There is a small amount of ascites present along with some mesenteric and omental stranding. For example the pelvic portion of this demonstrates serous Hounsfield units of approximately 16. Vasculature: No abdominal aortic aneurysmal dilatation or periaortic fluid is appreciated. Lymph nodes: There are abnormally enlarged lymph nodes present. There are areas of multifocal masslike enlargement with implant or mary conglomerative related change for example including 1 of the larger areas superiorly measuring about 11.8 x 8.8 x 9.6 cm as well as inferiorly measuring about 12 x 9 cm in diameter with craniocaudal length of a proximally 11 cm. There is also some conglomerative type appearance about the left hemipelvis and obturator margin. This contributes to some adjacent vascular and visceral mass effect including at the left iliac vein. Urinary bladder: The bladder is incompletely fluid filled for evaluation which may exagerate the wall thickness. This can also be seen with post inflammation sequela. Reproductive: There appears to be some slight prostate hypertrophy. Bones/joints: Osseous alignment is maintained.No interval displaced fracture or dislocation is appreciated. There are chronic degenerative changes of the lumbar spine demonstrated. Soft tissues: No radiopaque foreign body or subcutaneous emphysema is appreciated. The previously described area of left thigh mass is not included for evaluation. There does appear to be some soft tissue thickening or possible scarring about the left anterior thigh soft tissues. Other findings: No other significant interval changes are appreciated. CT/CT kidney stone [id number] IMPRESSION: There are neoplastic changes demonstrated with several large masslike areas of implant or mary conglomeration throughout the abdomen and pelvis. This may correspond with renal type origin as there is associated mass effect with ill-defined margins of the right kidney. Consider PET-CT and/or sampling.
--- NOTE | 2023-03-17 06:43 | W.ED.MALEGU ---
HPI - Male Genitourinary General: Chief complaint: Urogenital-Male Stated complaint: peeing blood, fever Time Seen by Provider: 03/17/23 06:26 History of Present Illness: 47 year old male presents to the ER with a chief complaint of hematuria with left sided flank pain that started on . Pt does not endorse any previous history of kidney stones or trauma. He reportes no history of STI's and reports no urethral discharge. Pt reports that the pain is an ache with times of sharpness. Associated symptoms: Deny vomiting Review of Systems General: Reports: 10 or more systems reviewed and unremarkable except in HPI and below Const: Denies: fever(s), chills, fatigue or malaise Eyes: Denies: change in vision or blurry vision Card: Denies: chest pain or palpitations Resp: Denies: dyspnea or productive cough GI: Denies: vomiting : Reports: flank pain, urinary frequency and urinary hesitancy Musc: Denies: extremity pain or extremity swelling Skin/Breast: Denies: rash or pruritus Neuro: Denies: headache(s) Psych: Denies: anxiety or depression Jose/Lymph: Denies: easy bleeding All/Imm: Denies: urticaria, throat swelling or facial swelling PFSH ED PFSH: Medical History Cigarette smoker Epididymitis History of MRSA infection Surgical History H/O circumcision History of back surgery Family History Other Diabetes Unknown family medical history Denies family history of CAD (coronary artery disease) Anesthesia complication Bleeding disorder Cancer Social History Smoking and tobacco/nicotine status: current every day tobacco/nicotine user Second hand smoke exposure: No Alcohol intake: never Substance/Drug Use: unknown Adopted: Yes Caregiver/support person: No Lives independently: Yes Household members: children Housing: Manufactured/Mobile home Marital status: Single Number of children: 3 service: No Current occupational status: employed 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 Do you think of yourself as: Straight/Heterosexual Current gender identity: Male Physical Exam Const: COMMON NORMALS: no acute distress, patient oriented x3 and healthy appearing HENMT: COMMON NORMALS: normocephalic and atraumatic HEAD & SCALP: normocephalic and atraumatic Eye: COMMON NORMALS: Equal, round and reactive pupils present and EOMs intact bilaterally PUPIL: Yes Equal, round and reactive pupils present Neck/C-Spine: COMMON NORMALS: full ROM, supple and no JVD Lymph: LYMPHATIC: no lymphadenopathy noted Chest: COMMONS NORMALS: normal inspection of the chest and normal palpation of entire chest wall Resp: COMMON NORMALS: normal respiratory effort, No retractions and clear to auscultation bilaterally EFFORT & INSPECTION: Yes able to speak in complete sentences and Yes symmetric chest movement AUSCULTATION: clear to auscultation bilaterally Cardio: COMMON NORMALS: no JVD, regular rate and regular rhythm RATE: regular rate RHYTHM: regular rhythm GI: COMMON NORMALS: Normal to inspection, nondistended, normoactive bowel sounds present and Soft to palpation; negative for non-tender (pain with guarding noted to suprapubic region and left flank) INSPECTION: Yes normal to inspection PALPATION: Yes Soft to palpation : COMMON NORMALS: Yes no CVA tenderness BLADDER/KIDNEY EXAM: Yes no CVA tenderness Back/Pelvis: COMMON NORMALS: no CVA tenderness Extremity: COMMON NORMALS: normal to inspection and full ROM Neuro: COMMON NORMALS: patient oriented x3, CN's II-XII intact bilaterally, moves all extremities and no focal motor deficits Psych: COMMON NORMALS: mental status grossly normal, Normal thought process present, cooperative and normal affect THOUGHT PROCESS: Normal thought process present Skin: COMMON NORMALS: no rashes or lesions noted GENERAL SKIN EXAM: no rashes or lesions noted Course Vital Signs: Vital signs: Vital Signs Temperature 99 F 03/17/23 06:10 Pulse Rate 102 H 03/17/23 06:10 Respiratory Rate 20 H 03/17/23 06:10 Pulse Oximetry 95 03/17/23 06:10 MDM - Male Medical Decision Making Due to patients symptoms and condition, IV was initiated, labwork and imaging obtained with meds ordered for patients pain and nausea, bladder scanner was also ordered, will continue to follow. Discussed the patient's case with Dr. Candelario on-call for oncology at [facility] and located in [facility] that is recommended that he will further contact the patient on Sunday for prompt follow-up outpatient. Patient was advised of this information in which was instructed to contact Honorio Crocker for further information in her management. Lab Data 03/17/23 06:34 03/17/23 06:34 Radiology Impressions Abdomen/Pelvis CT 03/17/23 08:51 IMPRESSION: 1. There are extensive neoplastic changes demonstrated corresponding with some bulky abdominal and pelvic masses as well as the right renal level mass appearing similar overall and likely represents the epicenter. Consider PET-CT and/or sampling for pathologic evaluation and therapy. 2. There is some heterogeneous and mixed attenuation correspondingly of the right kidney parenchyma. Some superimposed inflammation as well as associated compressive decreased interlobular perfusion related changes could present in this fashion. Adjacent renal arterial and venous luminal contrast is overall demonstrated. COMMENTS: Consistent with the [employer]'s Incidental Findings Committee white paper (J Am Brittani Radiol 2018): Any incidental renal lesion less than 1 cm or classified as too small to characterize, or any incidental cystic renal lesion characterized as simple-appearing, is likely benign. No follow-up imaging is recommended for these lesions per consensus recommendations based on imaging criteria. Laboratory Results WBC 8.22 10^3/uL (3.29-11.43) 03/17/23 06:34 RBC 5.42 10^6/uL (3.85-5.65) 03/17/23 06:34 Hgb 16.00 g/dL (11.27-16.99) 03/17/23 06:34 Hct 49.1 % (37-53) 03/17/23 06:34 MCV 90.6 fl (82-101) 03/17/23 06:34 MCH 29.5 pg (27-33) 03/17/23 06:34 MCHC 32.6 g/dL (30-55) 03/17/23 06:34 RDW 13.1 % (12.1-15.1) 03/17/23 06:34 Plt Count 303 10^3/cmm (157-399) 03/17/23 06:34 MPV 9.4 fL (7.4-10.4) 03/17/23 06:34 Neut % (Auto) 71.8 % 03/17/23 06:34 Lymph % (Auto) 15.5 % 03/17/23 06:34 Cotton % (Auto) 8.5 % 03/17/23 06:34 Eos % (Auto) 2.8 % 03/17/23 06:34 Baso % (Auto) 1.0 % 03/17/23 06:34 Neut # (Auto) 5.91 10^3/uL (1.8-7.7) 03/17/23 06:34 Lymph # (Auto) 1.3 10^3/uL (0.8-4.8) 03/17/23 06:34 Cotton # (Auto) 0.7 10^3/uL (0.2-0.9) 03/17/23 06:34 Eos # (Auto) 0.2 10^3/uL (0.0-0.8) 03/17/23 06:34 Baso # (Auto) 0.1 10^3/uL (0.0-0.1) 03/17/23 06:34 Nucleated RBC % (auto) 0 % 03/17/23 06:34 Nucleated RBCs # 0.0 /100WBC 03/17/23 06:34 Sodium 139 mmol/L (136-145) 03/17/23 06:34 Potassium 3.5 mmol/L (3.5-5.1) 03/17/23 06:34 Chloride 99 mmol/L (98-107) 03/17/23 06:34 Carbon Dioxide 27 mmol/L (22-29) 03/17/23 06:34 Anion Gap 16.5 (5-19) 03/17/23 06:34 BUN 12 mg/dL (6-20) 03/17/23 06:34 Creatinine 1.4 mg/dL (0.7-1.2) H 03/17/23 06:34 GFR Calculation 54.8 mL/min (90-130) L 03/17/23 06:34 Glucose 148 mg/dL (65-115) H 03/17/23 06:34 Calculated Osmolality 291 mOsm/kg (285-295) 03/17/23 06:34 Calcium 9.6 mg/dL (8.5-10.5) 03/17/23 06:34 Total Bilirubin 0.4 mg/dL (0.15-1.2) 03/17/23 06:34 AST 20 U/L (0-40) 03/17/23 06:34 ALT 11 U/L (0-41) 03/17/23 06:34 Alkaline Phosphatase 97 U/L (40-130) 03/17/23 06:34 C-Reactive Protein 5.3 mg/L (0.0-4.9) H 03/17/23 06:34 Total Protein 7.4 g/dL (6.6-8.7) 03/17/23 06:34 Albumin 4.7 g/dL (3.5-5.2) 03/17/23 06:34 Globulin 2.7 g/dL (1.3-4.6) 03/17/23 06:34 Urine Color Dark yellow (Yellow) 03/17/23 06:55 Urine Appearance Cloudy (CLEAR) A 03/17/23 06:55 Urine pH 5 (5-7) 03/17/23 06:55 Ur Specific [place] 1.020 (1.005-1.030) 03/17/23 06:55 Urine Protein Trace (Negative) 03/17/23 06:55 Urine Glucose (UA) Norm (Normal) 03/17/23 06:55 Urine Ketones Negative (Negative) 03/17/23 06:55 Urine Blood 3+ (Negative) H 03/17/23 06:55 Urine Nitrate Negative (Negative) 03/17/23 06:55 Urine Bilirubin Neg (Negative) 03/17/23 06:55 Urine Urobilinogen Norm mg/dL (Negative) 03/17/23 06:55 Ur Leukocyte Esterase Negative (Negative) 03/17/23 06:55 Urine RBC >100 /hpf (0-2) H 03/17/23 06:55 Urine WBC Rare /hpf (0-5) 03/17/23 06:55 Ur Squamous Epith Cells Rare /hpf (0-5) 03/17/23 06:55 Amorphous Sediment Not Reportable 03/17/23 06:55 Urine Bacteria Trace /hpf (NONE) 03/17/23 06:55 Urine Mucus Trace /hpf 03/17/23 06:55 All radiology interpretation(s) finalized by discharge Discharge Plan Discharge Patient Disposition: Home Clinical Impression: Cancer of kidney, Abdominal carcinomatosis, Hematuria Condition: Stable Prescriptions: No Action No Known Home Medications Discharge Orders: Discharge ED (Routine); Ordered 03/17/23 Ordered By: Deniz Santiago Referrals: Mayela Barba FNP-C [Primary Care Provider] - 1-3 days Discharge Diet: Advance as tolerated Discharge Activity: Increase activity as tolerated Patient Instructions: Renal Cancer (DC) Activity Restrictions/Additional Instructions: your case has been discussed with Dr. Candelario oncologist based in [facility] located in [facility] your information has been provided to him in which his office will be contacting you on Sunday for further prompt outpatient evaluation. If you have any additional questions or concerns please contact his office. Your lab work and imaging obtained today has been provided to his fax in which she will be able to review.if you have any additional concerns you can also contact the ER for further help. 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
[2023-03-17 06:49] LABS: Basophils # 0.1 10^3/uL (0.0-0.1); Eosinophils # 0.2 10^3/uL (0.0-0.8); Eosinophils % 2.8 %; Hematocrit 49.1 % (37-53); Lymphocytes # 1.3 10^3/uL (0.8-4.8); Lymphocytes % 15.5 %; Mean Corpuscular HGB Conc 32.6 g/dL (30-55); Mean Corpuscular Hemoglobin 29.5 pg (27-33); Mean Corpuscular Volume 90.6 fl (82-101); Mean Platelet Volume 9.4 fL (7.4-10.4); Monocytes # 0.7 10^3/uL (0.2-0.9); Monocytes % 8.5 %; Neutrophils # 5.91 10^3/uL (1.8-7.7); Neutrophils % 71.8 %; Nucleated Red Blood Cells % 0 %; Platelet Count 303 10^3/cmm (157-399); Red Blood Count 5.42 10^6/uL (3.85-5.65); Red Cell Distribution Width 13.1 % (12.1-15.1); White Blood Count 8.22 10^3/uL (3.29-11.43)
[2023-03-17] MEDS: sodium chloride 0.9% 1,000 ML 999 ML IV (06:59)
[2023-03-17] MEDS: ketorolac 30 mg/mL INJ IVP (06:59)
[2023-03-17] MEDS: ondansetron 2 mg/ML SDV 2 mL 4 MG IVP (06:59)
[2023-03-17 07:04] LABS: Alanine Aminotransferase 11 U/L (0-41); Albumin Level 4.7 g/dL (3.5-5.2); Alkaline Phosphatase 97 U/L (40-130); Anion Gap 16.5 (5-19); Aspartate Amino Transferase 20 U/L (0-40); Blood Urea Nitrogen 12 mg/dL (6-20); C Reactive Protein 5.3 mg/L (0.0-4.9); Calcium 9.6 mg/dL (8.5-10.5); Carbon Dioxide 27 mmol/L (22-29); Chloride 99 mmol/L (98-107); Globulin 2.7 g/dL (1.3-4.6); Glomerular Filtration Rate 54.8 mL/min (90-130); Glucose 148 mg/dL (65-115); Osmolality Calculated 291 mOsm/kg (285-295); Potassium 3.5 mmol/L (3.5-5.1); Sodium 139 mmol/L (136-145); Total Bilirubin 0.4 mg/dL (0.15-1.2); Total Protein 7.4 g/dL (6.6-8.7)
[2023-03-17 07:18] LABS: Add Urine Microscopic? YES; Bilirubin Urine Neg (Negative); Blood Urine 3+ (Negative); Glucose Urine UA Norm (Normal); Ketones Urine Negative (Negative); Leukocyte Esterase Urine Negative (Negative); Nitrate Urine Negative (Negative); Protein Urine Trace (Negative); Urine Appearance Cloudy (CLEAR); Urine Color Dark Yellow (Yellow); Urobilinogen Urine Norm (Negative); pH Urine 5 (5-7)
[2023-03-17 07:19] LABS: RBC Urine >100 /hpf (0-2)
[2023-03-17 07:20] LABS: Bacteria Urine TRACE /hpf; Squamous Epithelial Cell Urine RARE /hpf (0-5); WBC Urine RARE /hpf (0-5)
[2023-03-17 07:21] LABS: Add Urine Culture? Yes; Mucus Urine TRACE /hpf
--- NOTE | 2023-03-17 08:51 | CTR_ITS ---
PROCEDURE INFORMATION: Exam: CT Abdomen And Pelvis With Contrast Exam date and time: 03/17/2023 9:08 AM Age: 47 years old Clinical indication: Abdominal pain; Flank; Left; Additional info: Concerns for metastatic cancer of the kidney based on renal.No history of trauma or recent surgery is provided. TECHNIQUE: Imaging protocol: Computed tomography of the abdomen and pelvis with contrast. 218image(s) are provided. Radiation optimization: All CT scans at this facility use at least one of these dose optimization techniques: automated exposure control; mA and/or kV adjustment per patient size (includes targeted exams where dose is matched to clinical indication); or iterative reconstruction. Contrast material: OMNI 350; Contrast volume: 100 ml; Contrast route: INTRAVENOUS (IV); Other technique: Axial images are available with sagittal and coronal reconstruction views. Automated dose exposure control is utilized. The DLP is 506.28. REPORTING DATA: Count of CT and Cardiac NM exams in prior 12 months: This patient has received 0 known CTs and 0 known cardiac nuclear medicine studies in the 12 months prior to the current study. COMPARISON: CT kidney stone [id number] 03/17/2023 6:58 AM. RADIATION DOSE METRICS: Total DLP (mGy-cm): 506.28 FINDINGS: Lungs: The lung bases correspond with similar bandlike and nodular appearance. No interval lobar consolidation is appreciated. Liver: The liver parenchyma appears similar overall. Gallbladder and bile ducts: The gallbladder appears similar overall. Pancreas: Pancreas appears similar overall. Spleen: The spleen parenchyma appears similar overall. Adrenal glands: The adrenal glands appears similar. Kidneys and ureters: There is relatively homogeneous left renal parenchymal enhancement with nonobstructive calcific appearance similar overall. There is heterogeneous enhancement and slight nephromegaly corresponding of the right kidney. This demonstrates some low overall enhancement for example at the superior as well as posterior aspects. Some processes including inflammation as well as lower overall interlobular or arcuate perfusion with the localized mass effect could also present in this fashion with the subtle perinephric stranding. The central right renal mass measures approximately 5.9 x 4.5 x 5.3 cm. This extends to the corticomedullary pelvicalyceal margins with ill-defined appearance. Stomach and bowel: There is a small sliding-type hiatal hernia demonstrated with slight gastroesophageal fold thickening. Appendix: The appendix appears similar overall. Intraperitoneal space: There is a small amount of ascites along with mesenteric and omental stranding similar overall. No gross interval layering free air is currently appreciated. Vasculature: No interval aortic saccular aneurysmal dilatation is appreciated. There is compressive mass effect of the left iliac vein similar overall with the adjacent mass conglomeration also abutting the adjacent osseous and foraminal margins. Renal arterial luminal contrast is appreciated as well as the adjacent renal veins. These demonstrates smaller overall caliber on the right with some splaying from the adjacent renal central mass. Lymph nodes: There are abnormally enlarged lymph nodes and conglomerate of areas similar overall. There is some associated overall lymph node conglomeration with visceral and vascular mass effect. Urinary bladder: Unremarkable as visualized. Reproductive: Unremarkable as visualized. Bones/joints: Osseous alignment is maintained.No interval displaced fracture or dislocation is appreciated. Soft tissues: No radiopaque foreign body or subcutaneous emphysema is appreciated. Other findings: There is some motion artifact present. No other significant interval changes are appreciated. CT/CT abdomen pelvis w con* [id number] IMPRESSION: 1. There are extensive neoplastic changes demonstrated corresponding with some bulky abdominal and pelvic masses as well as the right renal level mass appearing similar overall and likely represents the epicenter. Consider PET-CT and/or sampling for pathologic evaluation and therapy. 2. There is some heterogeneous and mixed attenuation correspondingly of the right kidney parenchyma. Some superimposed inflammation as well as associated compressive decreased interlobular perfusion related changes could present in this fashion. Adjacent renal arterial and venous luminal contrast is overall demonstrated. COMMENTS: Consistent with the [employer]'s Incidental Findings Committee white paper (J Am Brittani Radiol 2018): Any incidental renal lesion less than 1 cm or classified as too small to characterize, or any incidental cystic renal lesion characterized as simple-appearing, is likely benign. No follow-up imaging is recommended for these lesions per consensus recommendations based on imaging criteria.
== END 2023-03-17 12:04 | disposition home or self-care (01) ==
PROVIDERS: Emergency Provider Emergency Medicine; PCP Nurse Practitioner Family
DX: C80.0 Disseminated malignant neoplasm, unspecified (principal); C64.9 Malignant neoplasm of unspecified kidney, except renal pelvis; R31.9 Hematuria, unspecified; F17.210 Nicotine dependence, cigarettes, uncomplicated
CPT/HCPCS: 74176; 74177; 80053; 81001; 85025; 86140; 87086; 96374; 96375; 99285; J1885; J2405; J7030

== ENCOUNTER 2023-06-05 15:24 | Emergency (ER) | payer MEDICAID, SELFPAY ==
--- NOTE | 2023-06-05 15:58 | ED_ITS ---
HPI - General Adult General: Chief complaint: Extremity Problem,Nontraumatic Stated complaint: Infection on legs Time Seen by Provider: 06/05/23 15:44 Source: patient Mode of arrival: EMS History of Present Illness: 48-year-old [facility] of uncontrolled [facility]. Patient has osteosarcoma widely metastasized and hepatitis C they have opted not to pursue any further treatment is currently on hospice. His abdomen is massively distended. There is some question as to whether or not he has been getting all of his appropriate medications for his comfort cares in his current living setting. Shortly after he arrived here hospice nurse called and made other plans for him to go home with another friend who is willing to help care for him. Patient days complaining of severe pain in his abdomen and his lower extremities he has significant swelling mucousy eschars of skin erosions on his lower extremities as well. He does have a 50 mcg fentanyl patch on his left deltoid. Onset (ago): unknown Relieving factors: none Exacerbating factors: none Associated symptoms: Reports decreased appetite, dyspnea, malaise, nausea and weakness; Deny chest pain, confusion, cough, diaphoresis, fevers/chills, headache(s), rash, palpitations, seizures, short of breath, syncope or vomiting Treatments prior to arrival: other (Pain medications) Review of Systems Const: Reports: fatigue and malaise; Denies: fever(s), chills or diaphoresis Card: Denies: chest pain, palpitations or syncope Resp: Reports: dyspnea GI: Reports: abdominal pain, nausea and GI cramping; Denies: vomiting : Denies: dysuria, urinary frequency or urinary urgency Musc: Denies: neck pain or back pain Skin/Breast: Denies: rash Neuro: Denies: headache(s) or confusion PFSH ED PFSH: Medical History (Updated 06/05/23 @ 17:21 by Daniel Hinds DO) Osteosarcoma Epididymitis Cigarette smoker History of MRSA infection Surgical History H/O circumcision History of back surgery Family History Other Diabetes Unknown family medical history Denies family history of CAD (coronary artery disease) Anesthesia complication Bleeding disorder Cancer Social History Smoking and tobacco/nicotine status: current every day tobacco/nicotine user Second hand smoke exposure: No Alcohol intake: never Substance/Drug Use: unknown Adopted: Yes Caregiver/support person: No Lives independently: Yes Household members: children Housing: Manufactured/Mobile home Marital status: Single Number of children: 3 service: No Current occupational status: employed 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 Do you think of yourself as: Straight/Heterosexual Current gender identity: Male Physical Exam Const: GENERAL APPEARANCE: cooperative ORIENTATION/CONSCIOUSNESS: Yes awake HENMT: COMMON NORMALS: normocephalic, atraumatic and hearing grossly normal bilaterally HEAD & SCALP: normocephalic and atraumatic Resp: COMMON NORMALS: normal respiratory effort, No retractions, No use of accessory muscles and clear to auscultation bilaterally AUSCULTATION: clear to auscultation bilaterally Cardio: COMMON NORMALS: regular rate, regular rhythm and No murmurs present (Cardio) RATE: regular rate RHYTHM: regular rhythm GI: INSPECTION: Yes abdominal distension AUSCULTATION: Yes Hypoactive bowel sounds present PALPATION: Yes Tenderness to palpation present (GI) and No Guarding due to palpation present (GI) PERCUSSION: tympanic to percussion Extremity: COMMON NORMALS: normal to inspection, capillary refill normal, no clubbing, cyanosis or edema, no calf tenderness and no pedal edema Skin: COMMON NORMALS: no rashes or lesions noted GENERAL SKIN EXAM: no rashes or lesions noted Course Vital Signs: Vital signs: Vital Signs Temperature 98.2 F 06/05/23 16:03 Pulse Rate 89 06/05/23 16:03 Respiratory Rate 20 H 06/05/23 16:33 Blood Pressure 120/74 06/05/23 18:30 Pulse Oximetry 95 06/05/23 18:30 Oxygen Delivery Me thod Room Air 06/05/23 18:30 MDM - General Adult Medical Decision Making Patient is on hospice wishes to remain on hospice his current living situation has been somewhat precarious different friend/family member is going to take him into their home and they have made arrangements to move his hospice care to that home. Patient be discharged home with her. Hospice has all of the medications that they feel they require to manage his care at home. Patient does have a small bowel obstruction reviewed with hospice this will likely progress rather quickly. Medical Records I reviewed the patient's medical records. No radiology studies performed this visit Discharge Plan Discharge Patient Disposition: Home Clinical Impression: Osteosarcoma, Mass of left thigh, Small bowel obstruction Condition: Stable Prescriptions: No Action furosemide 40 mg tablet 40 mg PO DAILY fentanyl 50 mcg/hr patch 72 hour 50 mcg topical Q72H clindamycin HCl 300 mg capsule 300 mg PO TID ondansetron HCl 8 mg tablet 8 mg PO Q8H PRN (Reason: Nausea And Vomiting) lorazepam 0.5 mg tablet 0.5 mg PO Q2H PRN (Reason: Anxiety) pantoprazole 40 mg tablet,delayed release (DR/EC) 40 mg PO DAILY dexamethasone 4 mg tablet 4 mg PO Q6H PRN (Reason: unknown) gabapentin 300 mg capsule 300 mg PO TID metoprolol succinate 25 mg tablet extended release 24 hr 25 mg PO DAILY oxycodone 10 mg tablet 10 mg PO QID Discharge Orders: Discharge ED (Routine); Ordered 06/05/23 Ordered By: Daniel Hinds Referrals: Mayela Barba FNP-C [Primary Care Provider] - Discharge Diet: Usual diet Discharge Activity: Resume usual activity Patient Instructions: Opioid Safety, Pain Management Activity Restrictions/Additional Instructions: Thank you for choosing [facility] for your healthcare needs today. Please realize this is an emergency room and that we are providing you with a medical screening exam and this may not be complete and all inclusive of all the testing and or work up that you may need to determine your ailment or severity of your illness. It is very important that you follow up as instructed or that you return to the Emergency Department should you have concerns or if your condition changes or worsens in any way. You are seen emergency room given pain medications. He will be discharged with your friend who will help care for you in conjunction with hospice. We have contacted hospice and they made arrangements to make sure there is adequate medications to control your pain at home. Coding Level of Care Code ED Tenderizer Tender for Dora Pichardo
[2023-06-05 16:03] VITALS: BP 118/62; PULSE 89; RESP 18; TEMP 36.8; O2SAT 95
[2023-06-05 16:33] VITALS: RESP 20
[2023-06-05] MEDS: fentaNYL 50 mcg/mL INJ 2mL IVP (16:33)
[2023-06-05] MEDS: ondansetron 2 mg/ML SDV 2 mL 4 MG IVP (16:34)
[2023-06-05 17:10] VITALS: BP 104/74
--- NOTE | 2023-06-05 17:25 | PC.NURSE ---
pts discharge delayed d/t waiting on transport home.
--- NOTE | 2023-06-05 17:27 | PC.NURSE ---
per Lesly Lawler RN, pt will be going home with Francesca Carole. Francesca's phone number is [phone]. Francesca states she is trying to get room ready in home for pt, unsure if it will be tonight. Francesca will transport pt home when pt is ready for discharge. Mike is pts hospice nurse, .
--- NOTE | 2023-06-05 17:56 | PC.NURSE ---
attempted to contact Francesca Lam, no answer at [phone].
--- NOTE | 2023-06-05 18:10 | PC.NURSE ---
this nurse spoke with Mike, pts hospice nurse. Mike is attempting to contact Francesca Roberts for transport home.
[2023-06-05 18:30] VITALS: BP 120/74; O2SAT 95
--- NOTE | 2023-06-05 19:29 | PC.NURSE ---
Upon rounding, this nurse found patient half-out of bed with clothes off, blankets on floor, and had removed own IV. IV catheter was intact. Patient had been tugging on catheter. Patient was educated to stay in bed and explained that it posed a risk of falling to patient. Patient helped back into bed and boosted, 2 rails raised on bed.
--- NOTE | 2023-06-05 20:29 | PC.NURSE ---
This nurse spoke with Mike, patient's hospice nurse, at this time to see if there is any update on patient's ride home, Francesca Lam. Mike told this nurse that she would call back and let this nurse know any updates.
--- NOTE | 2023-06-05 20:33 | PC.NURSE ---
Hospice nurse Mike called this nurse and informed her that Francesca Lam was setting up room at patient's house, and that Francesca was en route--would arrive in approximately 10 minutes to pickup patient.
== END 2023-06-05 21:26 | disposition home or self-care (01) ==
PROVIDERS: Emergency Provider Family Medicine; PCP Nurse Practitioner Family
DX: C41.9 Malignant neoplasm of bone and articular cartilage, unspecified (principal); R22.42 Localized swelling, mass and lump, left lower limb; K56.609 Unspecified intestinal obstruction, unspecified as to partial versus complete obstruction; F17.210 Nicotine dependence, cigarettes, uncomplicated
CPT/HCPCS: 96374; 96375; 99284; J2405; J3010